=== PATIENT | female | born 1955 | race Caucasian/White ===

== ENCOUNTER → 2020-01-14 13:00 | Oncology outpatient (ONC) | payer MEDICARE, OTHER, SELFPAY ==
[2019-04-30 14:35] VITALS: BP 117/74; PULSE 99; RESP 18; TEMP 36.4; O2SAT 97
--- NOTE | 2019-04-30 14:56 | ONC.MSW ---
Description: New Pt Intro Activity: Met with pt and her to introduce myself as the ONC SERVICE DELIVERY ANALYST/ROXY, offer services card, and assess immediate needs. Pt is here to establish with Dr. Fernandez for continued chemotherapy treatment, locally. She has an Oncologist that she has been working with down at [facility], and would like for that doctor to continue to be the primary care provider for her cancer treatment. Pt's was recently diagnosed with prostate cancer, and recently established his own care at [facility]. This is a recurrence in the setting of metastatic breast cancer. Pt has had multiple treatments, initially had a left breast lumpectomy, which is where she has recurred. SERVICE DELIVERY ANALYST explained the available resources and support available to her through the [facility], including the availability of the Women's Cancer Support Group. Pt shared that they have 2-adult daughters living in the [place] area, which is an option for her in terms of lodging, should his plan to drive back and forth from [place] every day for 8-weeks for radiation become too burdensome for him. Pt doesn't have any further questions or concerns at this time. Plan: F/u with patient when she returns to clinic with an ongoing treatment plan of care.
--- NOTE | 2019-04-30 15:11 | ONC.CONS ---
History of Present Illness - Data of Consult Primary Care Provider: Rachael Erickson MD - Consult Narrative Narrative: Diagnosis: Metastatic breast cancer Previous treatment: 1. Lumpectomy and axillary node biopsy on the left breast for a T2 N1, ER/OH positive, HER2 negative tumor in September 2006. She had 1 of 9 lymph nodes positive. Her primary tumor was 2.4 cm in size 2. 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 Adjuvant radiation finishing in March 2007 4. Tamoxifen. 5. Chest wall and bone recurrence detected in January 2011. She was treated with radiation 6. Xeloda and Xgeva 7. She had additional hormone therapy with letrozole, then anastrozole and then fulvestrant beginning in 2016 and then tamoxifen 8. Letrozole and palbociclib 9. Xeloda again in November 2017 for about a year. 10. Exemestane and Afinitor from November 2018 through February 2019 11. Progression in the breast and chest wall confirmed by biopsy. She has started on navelbine on days 1 and 8 of a 21 day cycle. She has had 1 cycle thus far History of present illness: The patient is a 64-year-old woman who is referred for ongoing local treatment for her breast cancer. She has had a long history of breast cancer that is been treated in [place] by Dr. Judy Erickson. Her has recently been diagnosed with prostate cancer and will be undergoing radiation. Because of that, it is more convenient for her to get her treated here. She has been extensively pretreated as outlined above. She has recently started on intravenous chemotherapy. She tolerated the 1st cycle with expected toxicity. She did have some fatigue. She had some mild nausea but no vomiting. She did have constipation. She also had some musculoskeletal aches and pains that lasted for about a week. He was bad enough that she did need some oxycodone. No fevers or chills. She has not noted any shortness of breath or cough. She denies any other new aches or pains. Her past medical history is notable for depression and hyperlipidemia. She has otherwise been quite healthy. Her family history is notable for mother who had leukemia. Her brother had some sort of cancer although she is not sure about the details. Social history: She is . 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 She does not smoke. She does have some red wine with dinner. She had been active doing art but because of her depression has not felt like it lately. Her medications include Abilify Lipitor Wellbutrin denosumab every 3 months Cymbalta and ranitidine. She also takes a number of supplements. CC: Edin Fernandez MD Home Medications and Allergies Home Medications Medication Instructions Recorded Confirmed Type Tumeric 800 mg DAILY 04/30/19 04/30/19 History aripiprazole [Abilify] 2 mg DAILY 04/30/19 04/30/19 History atorvastatin 10 mg PO DAILY 04/30/19 04/30/19 History bupropion HCl [Wellbutrin XL] 300 mg DAILY 04/30/19 04/30/19 History duloxetine [Cymbalta] 30 mg PO DAILY 04/30/19 04/30/19 History gabapentin 100 mg PO DAILY 04/30/19 04/30/19 History ginkgo biloba 40 mg DAILY 04/30/19 04/30/19 History melatonin 5 mg DAILY 04/30/19 04/30/19 History oxycodone 5 mg PO Q4-6H PRN 04/30/19 04/30/19 History prochlorperazine maleate 10 mg PO BID PRN 04/30/19 04/30/19 History [Compazine] pyridoxine (vitamin B6) [Vitamin 100 mg PO DAILY 04/30/19 04/30/19 History B-6] ranitidine HCl 150 mg PO DAILY 04/30/19 04/30/19 History Review of Systems - Patient Self-Reported Symptoms SR Constitution: Fatigue/Malaise SR Gastrointestinal issues: Change in bowel pattern, Nausea, Diarrhea, Constipation, Abdominal pain, Heartburn SR Musculoskeletal issues: Joint pain or swelling, Bone pain SR Neuro issues: Numbness or tingling Constitutional: no weight loss Ears, nose, mouth, throat: no headaches Cardiovascular: no chest pain, no palpitations, no dyspnea on exertion Respiratory: no shortness of breath, no cough Gastrointestinal: change in appetite, abdominal pain, constipation Musculoskeletal: pain Integumentary: no rash Psychiatric: mood disturbance Exam Vital signs: Vital Signs Temp Pulse Resp BP Pulse Ox 04/30/19 14:35 97.6 F 99 H 18 117/74 97 Intake and Output 04/29/19 04/30/19 04/30/19 23:59 07:59 15:59 Other: Weight 78.8 kg Patient Weight 04/30/19 23:59 Weight 78.8 kg - Constitutional positive no acute distress, positive average body habitus - Routine HEENT Exam Head: Present: normocephalic, atraumatic Eye: Present: EOMI, PERRL. Absent: conjunctival icterus, scleral injection ENT: Present: mucous membranes moist, oropharynx clear - Routine Neck Exam Present: supple. Absent: lymphadenopathy, thyromegaly - Routine Respiratory Exam Present: Clear to auscultation bilaterally. Absent: rales, wheezes - Routine Cardiovascular Exam Present: RRR, S1, S2. Absent: murmur - Routine Abdominal Exam Present: soft, normoactive bowel sounds. Absent: tenderness, organomegaly, mass - Routine Extremities Exam Absent: cyanosis, clubbing, edema - Routine Back/Spine Exam Back/Spine: Absent: paraspinal tenderness, vertebral tenderness - Routine Skin Exam Present: intact. Absent: petechiae, rash - Routine Neurological Exam Present: alert, oriented X3 - Routine Psychiatric Exam Present: normal affect, normal thought process Assessment and Plan (1) Breast cancer Current visit: Yes Status: Acute 64-year-old woman with metastatic breast cancer. She has been heavily pretreated but does just started IV chemotherapy with vinorelbine. She tolerated the 1st cycle with expected toxicities. It is not clear whether she is responding or not. She will get her 2nd cycle in [place] and begin treatment here just before the 23 of May. We will plan on seeing her about every 3 weeks. I would anticipate that she would have CT scan after 2-3 months of treatment depending on her tumor marker response.
[2019-05-22 10:53] LABS: Hematocrit 38.6 % (36-46); Hemoglobin 12.9 g/dL (12.0-16.0); Mean Corpuscular HGB Conc 33.5 % (30-36); Mean Corpuscular Hemoglobin 29.8 PG (26-34); Mean Corpuscular Volume 89.1 fL (80-100); Platelet Count 248 X10^3/uL (150-400); Red Blood Cell Count 4.33 X10^6/uL (4.0-5.2); Red Cell Distribution Width 18.2 % (11.6-14.8); White Blood Cell Count 10.3 X10^3/uL (4.5-11.0)
[2019-05-22 10:56] VITALS: BP 146/75; PULSE 90; RESP 16; TEMP 36.5; O2SAT 97
--- NOTE | 2019-05-22 10:59 | P.PNONC_ITS ---
PN -Subjective Interval history: Diagnosis: Metastatic breast cancer Previous treatment: 1. Lumpectomy and axillary node biopsy on the left breast for a T2 N1, ER/SC positive, HER2 negative tumor in September 2006. She had 1 of 9 lymph nodes positive. Her primary tumor was 2.4 cm in size 2. 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 Adjuvant radiation finishing in March 2007 4. Tamoxifen. 5. Chest wall and bone recurrence detected in January 2011. She was treated with radiation 6. Xeloda and Xgeva 7. She had additional hormone therapy with letrozole, then anastrozole and then fulvestrant beginning in 2016 and then tamoxifen 8. Letrozole and palbociclib 9. Xeloda again in November 2017 for about a year. 10. Exemestane and Afinitor from November 2018 through February 2019 11. Progression in the breast and chest wall confirmed by biopsy. She has started on navelbine on days 1 and 8 of a 21 day cycle. She has had 2 cycles thus far Interval history: The patient is a 64-year-old woman who returns today for follow-up. She has a history of metastatic breast cancer with primarily bony involvement. She has been treated in [place] but is transitioning to [place] now because of convenience. She is due to start her 3rd cycle of Navelbine today. She has tolerated her previous cycle with the expected toxicities. She has had some fatigue and nausea but no vomiting. She notes some achiness in her joints for about 3 or 4 days after the infusions. She has had some constipation. No skin rash. No fevers or chills. She did have a Neulasta shot with her 2nd cycle because of cytopenias. She has not noticed any shortness of breath or cough. No adenopathy. No other changes in her health. - Patient Self-Reported Symptoms SR Constitution: Fatigue/Malaise SR Gastrointestinal issues: Change in bowel pattern, Nausea, Diarrhea, Constipation, Abdominal pain, Heartburn SR Musculoskeletal issues: Joint pain or swelling, Bone pain SR Neuro issues: Numbness or tingling Home Medications and Allergies Home Medications Medication Instructions Recorded Confirmed Type Tumeric 800 mg DAILY 04/30/19 05/22/19 History aripiprazole [Abilify] 2 mg DAILY 04/30/19 05/22/19 History atorvastatin 10 mg PO DAILY 04/30/19 05/22/19 History bupropion HCl [Wellbutrin XL] 300 mg DAILY 04/30/19 05/22/19 History duloxetine [Cymbalta] 30 mg PO DAILY 04/30/19 05/22/19 History gabapentin 100 mg PO DAILY 04/30/19 05/22/19 History ginkgo biloba 40 mg DAILY 04/30/19 05/22/19 History melatonin 5 mg DAILY 04/30/19 05/22/19 History oxycodone 5 mg PO Q4-6H PRN 04/30/19 05/22/19 History prochlorperazine maleate 10 mg PO BID PRN 04/30/19 05/22/19 History [Compazine] pyridoxine (vitamin B6) [Vitamin 100 mg PO DAILY 04/30/19 05/22/19 History B-6] ranitidine HCl 150 mg PO DAILY 04/30/19 05/22/19 History Exam Vital signs: Intake and Output 05/21/19 05/22/19 05/22/19 23:59 07:59 15:59 Other: Weight 78.8 kg Patient Weight 05/22/19 23:59 Weight 78.8 kg - Constitutional positive no acute distress, positive average body habitus - Routine HEENT Exam Head: Present: normocephalic, atraumatic Eye: Present: EOMI, PERRL. Absent: conjunctival icterus, scleral injection ENT: Present: mucous membranes moist, oropharynx clear - Routine Neck Exam Present: supple. Absent: lymphadenopathy, thyromegaly - Routine Respiratory Exam Present: Clear to auscultation bilaterally. Absent: rales, wheezes - Routine Cardiovascular Exam Present: RRR, S1, S2. Absent: murmur - Routine Abdominal Exam Present: soft, normoactive bowel sounds. Absent: tenderness, organomegaly, mass - Routine Extremities Exam Absent: cyanosis, clubbing, edema - Routine Back/Spine Exam Back/Spine: Absent: vertebral tenderness - Routine Skin Exam Present: intact. Absent: petechiae, rash - Routine Neurological Exam Present: alert, oriented X3 - Routine Psychiatric Exam Present: normal affect, normal thought process Assessment and Plan (1) Breast cancer Current visit: Yes Status: Acute 64-year-old woman with metastatic breast cancer. She has been heavily pretreated but does just started IV chemotherapy with vinorelbine. She tolerated 2 cycles with expected toxicities. It is not clear whether she is responding or not. She will start her 3rd cycle today. She will return to clinic in about 3 weeks for follow-up.
[2019-05-22 11:03] LABS: Alanine Aminotransferase 55 IU/L (9-52); Albumin 4.2 g/dL (3.5-5.0); Albumin Globulin Ratio 1.4 (1.0-2.8); Alkaline Phosphatase 160 U/L (38-126); Aspartate Aminotransferase 45 IU/L (14-36); BUN Creatinine Ratio 22.5 (6-22); Bilirubin Total 0.5 mg/dL (0.2-1.3); Blood Urea Nitrogen 18 mg/dL (7-17); Calcium 9.1 mg/dL (8.4-10.2); Carbon Dioxide 27 mmol/L (22-32); Chloride 104 mmol/L (98-107); Estimated Glomerular Filt Rate > 60.0 mL/min (>60); Glucose 100 mg/dL (80-110); HEMOLYSIS 27 (0-50); Potassium 4.3 mmol/L (3.4-5.1); Sodium 140 mmol/L (137-145); Total Protein 7.2 g/dL (6.3-8.2)
[2019-05-22 11:14] LABS: Add Manual Diff / Slide Review YES
[2019-05-22 11:29] LABS: Anisocytosis 2+; Neutrophils Absolute Manual 7725 /uL (3000-5900); Nucleated Red Blood Cells 1 #/Diff; Poikilocytosis 1+; Total Cells Counted 100
[2019-05-22] MEDS: ONDANSETRON 8 MG in SODIUM CHLORIDE 0.9% 50 ML 216 ML IV (11:45)
[2019-05-22] MEDS: DEXAMETHASONE 10 MG/ML VIAL 8 MG IV (11:45)
[2019-05-22] MEDS: SODIUM CHLORIDE 0.9% 100 ML 21 ML IV (11:48)
[2019-05-22] MEDS: VINORELBINE IV (12:29)
[2019-05-22] MEDS: SODIUM CHLORIDE 0.9% IV (12:29)
[2019-05-24 14:44] LABS: CA 15-3 77 U/mL (< 32)
[2019-05-29 11:28] LABS: Add Manual Diff / Slide Review NO; Basophils Absolute Auto 100 /uL (0-100); Basophils Percent Auto 2.3 % (0-2); Eosinophils Absolute Auto 100 /uL (0-450); Eosinophils Percent Auto 2.3 % (2-4); Hematocrit 34.8 % (36-46); Hemoglobin 12.1 g/dL (12.0-16.0); Lymphocytes Absolute Auto 1100 /uL (1100-4500); Lymphocytes Percent Auto 24.8 % (25-40); Mean Corpuscular HGB Conc 34.7 % (30-36); Mean Corpuscular Hemoglobin 30.8 PG (26-34); Mean Corpuscular Volume 88.5 fL (80-100); Monocytes Absolute Auto 200 /uL (0-900); Monocytes Percent Auto 4.7 % (3-14); Neutrophils Absolute Auto 3000 /uL (1500-7000); Neutrophils Percent Auto 65.9 % (50-75); Platelet Count 363 X10^3/uL (150-400); Red Blood Cell Count 3.93 X10^6/uL (4.0-5.2); Red Cell Distribution Width 17.9 % (11.6-14.8); White Blood Cell Count 4.5 X10^3/uL (4.5-11.0)
[2019-05-29 11:44] LABS: Alanine Aminotransferase 49 IU/L (9-52); Albumin 4.1 g/dL (3.5-5.0); Albumin Globulin Ratio 1.5 (1.0-2.8); Alkaline Phosphatase 129 U/L (38-126); Aspartate Aminotransferase 34 IU/L (14-36); BUN Creatinine Ratio 22.9 (6-22); Bilirubin Total 0.5 mg/dL (0.2-1.3); Blood Urea Nitrogen 16 mg/dL (7-17); Calcium 9.2 mg/dL (8.4-10.2); Carbon Dioxide 27 mmol/L (22-32); Chloride 105 mmol/L (98-107); Estimated Glomerular Filt Rate > 60.0 mL/min (>60); Globulin 2.7 g/dL (1.7-4.1); Glucose 137 mg/dL (80-110); HEMOLYSIS < 15 (0-50); Sodium 140 mmol/L (137-145); Total Protein 6.8 g/dL (6.3-8.2)
[2019-05-29] MEDS: DEXAMETHASONE 10 MG/ML VIAL 8 MG IV (12:10)
[2019-05-29] MEDS: SODIUM CHLORIDE 0.9% 100 ML 21 ML IV (12:11)
[2019-05-29] MEDS: ONDANSETRON 8 MG in SODIUM CHLORIDE 0.9% 50 ML 216 ML IV (12:18)
[2019-05-29 12:42] VITALS: BP 131/74; PULSE 88; RESP 16; TEMP 36.5; O2SAT 96
[2019-05-29] MEDS: VINORELBINE IV (13:00)
[2019-05-29] MEDS: SODIUM CHLORIDE 0.9% IV (13:00)
[2019-05-29] MEDS: PEGFILGRASTIM 6 MG/0.6 ML KIT SUBCUT (14:06)
[2019-06-12 10:19] LABS: Add Manual Diff / Slide Review NO; Basophils Absolute Auto 100 /uL (0-100); Basophils Percent Auto 1.2 % (0-2); Eosinophils Absolute Auto 200 /uL (0-450); Eosinophils Percent Auto 2.4 % (2-4); Hemoglobin 12.4 g/dL (12.0-16.0); Lymphocytes Absolute Auto 1400 /uL (1100-4500); Lymphocytes Percent Auto 17.7 % (25-40); Mean Corpuscular HGB Conc 34.6 % (30-36); Mean Corpuscular Hemoglobin 31.1 PG (26-34); Mean Corpuscular Volume 89.8 fL (80-100); Monocytes Absolute Auto 600 /uL (0-900); Monocytes Percent Auto 7.2 % (3-14); Neutrophils Absolute Auto 5700 /uL (1500-7000); Neutrophils Percent Auto 71.5 % (50-75); Platelet Count 227 X10^3/uL (150-400); Red Blood Cell Count 4.01 X10^6/uL (4.0-5.2); Red Cell Distribution Width 19.1 % (11.6-14.8)
[2019-06-12 10:38] LABS: Alanine Aminotransferase 43 IU/L (9-52); Albumin 4.4 g/dL (3.5-5.0); Albumin Globulin Ratio 1.5 (1.0-2.8); Alkaline Phosphatase 151 U/L (38-126); Aspartate Aminotransferase 34 IU/L (14-36); BUN Creatinine Ratio 24.3 (6-22); Bilirubin Total 0.5 mg/dL (0.2-1.3); Blood Urea Nitrogen 17 mg/dL (7-17); Calcium 9.5 mg/dL (8.4-10.2); Carbon Dioxide 27 mmol/L (22-32); Chloride 102 mmol/L (98-107); Estimated Glomerular Filt Rate > 60.0 mL/min (>60); Globulin 2.9 g/dL (1.7-4.1); Glucose 102 mg/dL (80-110); HEMOLYSIS < 15 (0-50); Potassium 4.2 mmol/L (3.4-5.1); Sodium 139 mmol/L (137-145); Total Protein 7.3 g/dL (6.3-8.2)
[2019-06-12 10:50] VITALS: BP 148/77; PULSE 87; RESP 16; TEMP 36.8; O2SAT 99
--- NOTE | 2019-06-12 11:07 | P.PNONC_ITS ---
PN -Subjective Interval history: Diagnosis: Metastatic breast cancer Previous treatment: 1. Lumpectomy and axillary node biopsy on the left breast for a T2 N1, ER/MO positive, HER2 negative tumor in September 2006. She had 1 of 9 lymph nodes positive. Her primary tumor was 2.4 cm in size 2. 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 Adjuvant radiation finishing in March 2007 4. Tamoxifen. 5. Chest wall and bone recurrence detected in January 2011. She was treated with radiation 6. Xeloda and Xgeva 7. She had additional hormone therapy with letrozole, then anastrozole and then fulvestrant beginning in 2016 and then tamoxifen 8. Letrozole and palbociclib 9. Xeloda again in November 2017 for about a year. 10. Exemestane and Afinitor from November 2018 through February 2019 11. Progression in the breast and chest wall confirmed by biopsy. She has started on navelbine on days 1 and 8 of a 21 day cycle. She has had 3 cycles thus far Interval history: The patient is a 64-year-old woman who returns today for follow-up. She has a history of metastatic breast cancer with primarily bony involvement. She has completed her 3rd cycle of Navelbine and is due for her 4th today. She has been tolerating it generally fairly well. She has had some fatigue and nausea but no vomiting. She has also noted some constipation. She has had some joint an bony pain following her Neulasta injections but denies any other new aches or pains. No fevers chills or sweats. No shortness of breath or cough. She has not noted any adenopathy. She otherwise feels well and denies any other changes in her health. She tells me that she is scheduled for a CT scan in follow-up in [facility] in June. - Patient Self-Reported Symptoms SR Constitution: Fatigue/Malaise SR ears, nose, mouth, throat issues: Changes in taste SR respiratory issues: Shortness of breath SR Skin issues: Hair loss or scalp prob, Nail changes SR Gastrointestinal issues: Heartburn SR Musculoskeletal issues: Muscle pain or cramps, Bone pain SR Neuro issues: Numbness or tingling Home Medications and Allergies Home Medications Medication Instructions Recorded Confirmed Type Tumeric 800 mg DAILY 04/30/19 06/12/19 History aripiprazole [Abilify] 2 mg DAILY 04/30/19 06/12/19 History atorvastatin 10 mg PO DAILY 04/30/19 06/12/19 History bupropion HCl [Wellbutrin XL] 300 mg DAILY 04/30/19 06/12/19 History duloxetine [Cymbalta] 30 mg PO DAILY 04/30/19 06/12/19 History gabapentin 100 mg PO DAILY 04/30/19 06/12/19 History ginkgo biloba 40 mg DAILY 04/30/19 06/12/19 History melatonin 5 mg DAILY 04/30/19 06/12/19 History oxycodone 5 mg PO Q4-6H PRN 04/30/19 06/12/19 History prochlorperazine maleate 10 mg PO BID PRN 04/30/19 06/12/19 History [Compazine] pyridoxine (vitamin B6) [Vitamin 100 mg PO DAILY 04/30/19 06/12/19 History B-6] ranitidine HCl 150 mg PO DAILY 04/30/19 06/12/19 History Allergies Allergy/AdvReac Type Severity Reaction Status Date / Time No Known Drug Allergies Allergy Verified 05/22/19 12:19 Exam Vital signs: Vital Signs Temp Pulse Resp BP Pulse Ox 06/12/19 10:50 98.2 F 87 16 148/77 H 99 Intake and Output 06/11/19 06/12/19 06/12/19 23:59 07:59 15:59 Other: Weight 77.2 kg Patient Weight 06/12/19 23:59 Weight 77.2 kg - Constitutional positive no acute distress, positive average body habitus - Routine HEENT Exam Head: Present: normocephalic, atraumatic Eye: Present: EOMI, PERRL. Absent: conjunctival icterus, scleral injection ENT: Present: mucous membranes moist, oropharynx clear - Routine Neck Exam Present: supple. Absent: lymphadenopathy, thyromegaly - Routine Respiratory Exam Present: Clear to auscultation bilaterally. Absent: rales, wheezes - Routine Cardiovascular Exam Present: RRR, S1, S2. Absent: murmur - Routine Abdominal Exam Present: soft, normoactive bowel sounds. Absent: organomegaly, mass - Routine Extremities Exam Absent: cyanosis, clubbing, edema - Routine Back/Spine Exam Back/Spine: Absent: vertebral tenderness - Routine Skin Exam Present: intact. Absent: petechiae, rash - Routine Neurological Exam Present: alert, oriented X3 - Routine Psychiatric Exam Present: normal affect, normal thought process Results - Labs Laboratory Last Values WBC 8.0 X10^3/uL (4.5-11.0) 06/12/19 10:05 RBC 4.01 X10^6/uL (4.0-5.2) 06/12/19 10:05 Hgb 12.4 g/dL (12.0-16.0) 06/12/19 10:05 Hct 36.0 % (36-46) 06/12/19 10:05 MCV 89.8 fL (80-100) 06/12/19 10:05 MCH 31.1 PG (26-34) 06/12/19 10:05 MCHC 34.6 % (30-36) 06/12/19 10:05 RDW 19.1 % (11.6-14.8) H 06/12/19 10:05 Plt Count 227 X10^3/uL (150-400) 06/12/19 10:05 Neut % (Auto) 71.5 % (50-75) 06/12/19 10:05 Lymph % (Auto) 17.7 % (25-40) L 06/12/19 10:05 Power % (Auto) 7.2 % (3-14) 06/12/19 10:05 Eos % (Auto) 2.4 % (2-4) 06/12/19 10:05 Baso % (Auto) 1.2 % (0-2) 06/12/19 10:05 Neut # (Auto) 5700 /uL (5935-5171) 06/12/19 10:05 Lymph # (Auto) 1400 /uL (4026-1279) 06/12/19 10:05 Power # (Auto) 600 /uL (0-900) 06/12/19 10:05 Eos # (Auto) 200 /uL (0-450) 06/12/19 10:05 Baso # (Auto) 100 /uL (0-100) 06/12/19 10:05 Total Counted 100 05/22/19 10:30 Seg Neutrophils % 52.0 % (38-70) 05/22/19 10:30 Band Neutrophils % 23.0 % (3-7) H 05/22/19 10:30 Lymphocytes % (Manual) 16.0 % (25-45) L 05/22/19 10:30 Monocytes % (Manual) 6.0 % (2-11) 05/22/19 10:30 Eosinophils % (Manual) 2.0 % (2-4) 05/22/19 10:30 Basophils % (Manual) 1.0 % (0-1) 05/22/19 10:30 Neutrophils # (Manual) 7725 /uL (0832-4801) H 05/22/19 10:30 Nucleated RBCs 1 #/Diff (-0) H 05/22/19 10:30 Differential Comment 05/22/19 10:30 RBC Morphology Not Reportable 05/22/19 10:30 Poikilocytosis 1+ H 05/22/19 10:30 Anisocytosis 2+ H 05/22/19 10:30 Sodium 139 mmol/L (137-145) 06/12/19 10:05 Potassium 4.2 mmol/L (3.4-5.1) 06/12/19 10:05 Chloride 102 mmol/L (98-107) 06/12/19 10:05 Carbon Dioxide 27 mmol/L (22-32) 06/12/19 10:05 BUN 17 mg/dL (7-17) 06/12/19 10:05 Creatinine 0.70 mg/dL (0.52-1.04) 06/12/19 10:05 Estimated GFR > 60.0 mL/min (>60) 06/12/19 10:05 BUN/Creatinine Ratio 24.3 (6-22) H 06/12/19 10:05 Glucose 102 mg/dL (80-110) 06/12/19 10:05 Calcium 9.5 mg/dL (8.4-10.2) 06/12/19 10:05 Total Bilirubin 0.5 mg/dL (0.2-1.3) 06/12/19 10:05 AST 34 IU/L (14-36) 06/12/19 10:05 ALT 43 IU/L (9-52) 06/12/19 10:05 Alkaline Phosphatase 151 U/L (38-126) H 06/12/19 10:05 Total Protein 7.3 g/dL (6.3-8.2) 06/12/19 10:05 Albumin 4.4 g/dL (3.5-5.0) 06/12/19 10:05 Globulin 2.9 g/dL (1.7-4.1) 06/12/19 10:05 Albumin/Globulin Ratio 1.5 (1.0-2.8) 06/12/19 10:05 Carc[facility] Ag 202.0 ng/mL (0.1-3.0) H 05/22/19 10:30 Breast [facility] Ag 77 U/mL (< 32) H 05/22/19 10:30 Assessment and Plan (1) Breast cancer Current visit: Yes Status: Acute 64-year-old woman with metastatic breast cancer. She has been tolerating her current chemotherapy with the expected toxicities. We will proceed with her 4th cycle today. She will return to clinic in about 3 weeks for follow-up. She will be due for restaging evaluation in [place] in June.
[2019-06-12] MEDS: DEXAMETHASONE 10 MG/ML VIAL 8 MG IV (11:41)
[2019-06-12] MEDS: ONDANSETRON 8 MG in SODIUM CHLORIDE 0.9% 50 ML 216 ML IV (11:44)
[2019-06-12] MEDS: SODIUM CHLORIDE 0.9% 100 ML 21 ML IV (11:44)
[2019-06-12] MEDS: SODIUM CHLORIDE 0.9% IV (12:22)
[2019-06-12] MEDS: VINORELBINE IV (12:22)
[2019-06-14 16:24] LABS: CA 15-3 46 U/mL (< 32)
[2019-06-19 14:03] LABS: Add Manual Diff / Slide Review NO; Basophils Absolute Auto 100 /uL (0-100); Basophils Percent Auto 1.2 % (0-2); Eosinophils Absolute Auto 200 /uL (0-450); Eosinophils Percent Auto 3.1 % (2-4); Hematocrit 35.5 % (36-46); Hemoglobin 12.1 g/dL (12.0-16.0); Lymphocytes Absolute Auto 1200 /uL (1100-4500); Lymphocytes Percent Auto 21.3 % (25-40); Mean Corpuscular HGB Conc 34.1 % (30-36); Mean Corpuscular Hemoglobin 30.9 PG (26-34); Mean Corpuscular Volume 90.6 fL (80-100); Monocytes Absolute Auto 300 /uL (0-900); Monocytes Percent Auto 4.9 % (3-14); Neutrophils Absolute Auto 4000 /uL (1500-7000); Neutrophils Percent Auto 69.5 % (50-75); Platelet Count 363 X10^3/uL (150-400); Red Blood Cell Count 3.92 X10^6/uL (4.0-5.2); Red Cell Distribution Width 18.5 % (11.6-14.8); White Blood Cell Count 5.8 X10^3/uL (4.5-11.0)
[2019-06-19 14:11] VITALS: BP 123/69; PULSE 100; RESP 14; TEMP 36.8; O2SAT 97
[2019-06-19 14:12] LABS: Alanine Aminotransferase 44 IU/L (9-52); Albumin 4.3 g/dL (3.5-5.0); Albumin Globulin Ratio 1.4 (1.0-2.8); Alkaline Phosphatase 131 U/L (38-126); Aspartate Aminotransferase 41 IU/L (14-36); BUN Creatinine Ratio 24.3 (6-22); Bilirubin Total 0.5 mg/dL (0.2-1.3); Blood Urea Nitrogen 17 mg/dL (7-17); Calcium 9.2 mg/dL (8.4-10.2); Carbon Dioxide 27 mmol/L (22-32); Chloride 103 mmol/L (98-107); Estimated Glomerular Filt Rate > 60.0 mL/min (>60); Glucose 113 mg/dL (80-110); HEMOLYSIS 36 (0-50); Potassium 4.1 mmol/L (3.4-5.1); Sodium 140 mmol/L (137-145); Total Protein 7.3 g/dL (6.3-8.2)
[2019-06-19] MEDS: SODIUM CHLORIDE 0.9% 100 ML 21 ML IV (14:52)
[2019-06-19] MEDS: DEXAMETHASONE 10 MG/ML VIAL 8 MG IV (15:08)
[2019-06-19] MEDS: ONDANSETRON 8 MG in SODIUM CHLORIDE 0.9% 50 ML 216 ML IV (15:09)
[2019-06-19] MEDS: VINORELBINE IV (16:00)
[2019-06-19] MEDS: SODIUM CHLORIDE 0.9% IV (16:00)
[2019-06-19] MEDS: PEGFILGRASTIM 6 MG/0.6 ML KIT SUBCUT (16:27)
[2019-07-03 14:40] VITALS: BP 132/77; PULSE 88; RESP 18; TEMP 36.1; O2SAT 98
--- NOTE | 2019-07-03 15:07 | ONC.MSW ---
Description: Check-in/Resources Activity: Checked in with pt re: coping. Pt states that she is doing well, is continuing to be followed by her oncologist at [facility]. [employer] provided pt with a flyer for the upcoming women's cancer support group, encouraged her to attend. No further needs indicated at this time.
--- NOTE | 2019-07-03 15:09 | ONC.PN ---
PN -Subjective Interval history: Diagnosis: Metastatic breast cancer Previous treatment: 1. Lumpectomy and axillary node biopsy on the left breast for a T2 N1, ER/TN positive, HER2 negative tumor in September 2006. She had 1 of 9 lymph nodes positive. Her primary tumor was 2.4 cm in size 2. 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 Adjuvant radiation finishing in March 2007 4. Tamoxifen. 5. Chest wall and bone recurrence detected in January 2011. She was treated with radiation 6. Xeloda and Xgeva 7. She had additional hormone therapy with letrozole, then anastrozole and then fulvestrant beginning in 2016 and then tamoxifen 8. Letrozole and palbociclib 9. Xeloda again in November 2017 for about a year. 10. Exemestane and Afinitor from November 2018 through February 2019 11. Progression in the breast and chest wall confirmed by biopsy. She has started on navelbine on days 1 and 8 of a 21 day cycle. She has had 4 cycles thus far Interval history: The patient is a 64-year-old woman who returns today for follow-up. She has a history of metastatic breast cancer with primarily bony involvement. She has completed her 4th cycle of Navelbine and is due for her 5th today. She has been tolerating it generally fairly well. She has had some fatigue and nausea but no vomiting. Her appetite has been good. Her strength and energy level have been fair. She denies any new aches or pains. No fevers chills or sweats. She is not having any constipation. No skin rash or itching. She has not noted any adenopathy. No shortness of breath or cough. She was seen down in [place] last week. She had a CT scan and bone scan. There was no evidence of increased measurable disease. There was some increased intensity on her bone scan and some increased sclerosis in the bone on CT. It was not clear whether that represented progression or healing. She did meet with her oncologist there who recommended continuing on with her Navelbine. - Patient Self-Reported Symptoms SR Constitution: Fatigue/Malaise SR ears, nose, mouth, throat issues: Changes in taste SR respiratory issues: Shortness of breath SR Skin issues: Hair loss or scalp prob, Nail changes SR Gastrointestinal issues: Heartburn SR Musculoskeletal issues: Muscle pain or cramps, Bone pain SR Neuro issues: Numbness or tingling Home Medications and Allergies Home Medications Medication Instructions Recorded Confirmed Type Tumeric 800 mg DAILY 04/30/19 06/12/19 History aripiprazole [Abilify] 2 mg DAILY 04/30/19 06/12/19 History atorvastatin 10 mg PO DAILY 04/30/19 06/12/19 History bupropion HCl [Wellbutrin XL] 300 mg DAILY 04/30/19 06/12/19 History duloxetine [Cymbalta] 30 mg PO DAILY 04/30/19 06/12/19 History gabapentin 100 mg PO DAILY 04/30/19 06/12/19 History ginkgo biloba 40 mg DAILY 04/30/19 06/12/19 History melatonin 5 mg DAILY 04/30/19 06/12/19 History oxycodone 5 mg PO Q4-6H PRN 04/30/19 06/12/19 History prochlorperazine maleate 10 mg PO BID PRN 04/30/19 06/12/19 History [Compazine] pyridoxine (vitamin B6) [Vitamin 100 mg PO DAILY 04/30/19 06/12/19 History B-6] ranitidine HCl 150 mg PO DAILY 04/30/19 06/12/19 History Allergies Allergy/AdvReac Type Severity Reaction Status Date / Time No Known Drug Allergies Allergy Verified 05/22/19 12:19 Exam Vital signs: Vital Signs Temp Pulse Resp BP Pulse Ox 07/03/19 14:40 97 F L 88 18 132/77 98 Intake and Output 07/02/19 07/03/19 07/03/19 23:59 07:59 15:59 Other: Weight 77.2 kg 76.2 kg Patient Weight 07/03/19 23:59 Weight 76.2 kg - Constitutional positive no acute distress, positive average body habitus - Routine HEENT Exam Head: Present: normocephalic, atraumatic Eye: Present: EOMI, PERRL. Absent: conjunctival icterus, scleral injection ENT: Present: mucous membranes moist, oropharynx clear - Routine Neck Exam Present: supple. Absent: lymphadenopathy, thyromegaly - Routine Respiratory Exam Present: Clear to auscultation bilaterally. Absent: rales, wheezes - Routine Cardiovascular Exam Present: RRR, S1, S2. Absent: murmur - Routine Abdominal Exam Present: soft, normoactive bowel sounds. Absent: tenderness, organomegaly, mass - Routine Extremities Exam Absent: cyanosis, clubbing, edema - Routine Back/Spine Exam Back/Spine: Absent: vertebral tenderness - Routine Skin Exam Present: intact. Absent: petechiae, rash - Routine Neurological Exam Present: alert, oriented X3 - Routine Psychiatric Exam Present: normal affect, normal thought process Results - Labs Laboratory Last Values WBC 5.8 X10^3/uL (4.5-11.0) 06/19/19 13:50 RBC 3.92 X10^6/uL (4.0-5.2) L 06/19/19 13:50 Hgb 12.1 g/dL (12.0-16.0) 06/19/19 13:50 Hct 35.5 % (36-46) L 06/19/19 13:50 MCV 90.6 fL (80-100) 06/19/19 13:50 MCH 30.9 PG (26-34) 06/19/19 13:50 MCHC 34.1 % (30-36) 06/19/19 13:50 RDW 18.5 % (11.6-14.8) H 06/19/19 13:50 Plt Count 363 X10^3/uL (150-400) 06/19/19 13:50 Neut % (Auto) 69.5 % (50-75) 06/19/19 13:50 Lymph % (Auto) 21.3 % (25-40) L 06/19/19 13:50 [place] % (Auto) 4.9 % (3-14) 06/19/19 13:50 Eos % (Auto) 3.1 % (2-4) 06/19/19 13:50 Baso % (Auto) 1.2 % (0-2) 06/19/19 13:50 Neut # (Auto) 4000 /uL (8569-8545) 06/19/19 13:50 Lymph # (Auto) 1200 /uL (8717-0378) 06/19/19 13:50 [place] # (Auto) 300 /uL (0-900) 06/19/19 13:50 Eos # (Auto) 200 /uL (0-450) 06/19/19 13:50 Baso # (Auto) 100 /uL (0-100) 06/19/19 13:50 Total Counted 100 05/22/19 10:30 Seg Neutrophils % 52.0 % (38-70) 05/22/19 10:30 Band Neutrophils % 23.0 % (3-7) H 05/22/19 10:30 Lymphocytes % (Manual) 16.0 % (25-45) L 05/22/19 10:30 Monocytes % (Manual) 6.0 % (2-11) 05/22/19 10:30 Eosinophils % (Manual) 2.0 % (2-4) 05/22/19 10:30 Basophils % (Manual) 1.0 % (0-1) 05/22/19 10:30 Neutrophils # (Manual) 7725 /uL (3829-9514) H 05/22/19 10:30 Nucleated RBCs 1 #/Diff (-0) H 05/22/19 10:30 Differential Comment 05/22/19 10:30 RBC Morphology Not Reportable 05/22/19 10:30 Poikilocytosis 1+ H 05/22/19 10:30 Anisocytosis 2+ H 05/22/19 10:30 Sodium 140 mmol/L (137-145) 06/19/19 13:50 Potassium 4.1 mmol/L (3.4-5.1) 06/19/19 13:50 Chloride 103 mmol/L (98-107) 06/19/19 13:50 Carbon Dioxide 27 mmol/L (22-32) 06/19/19 13:50 BUN 17 mg/dL (7-17) 06/19/19 13:50 Creatinine 0.70 mg/dL (0.52-1.04) 06/19/19 13:50 Estimated GFR > 60.0 mL/min (>60) 06/19/19 13:50 BUN/Creatinine Ratio 24.3 (6-22) H 06/19/19 13:50 Glucose 113 mg/dL (80-110) H 06/19/19 13:50 Calcium 9.2 mg/dL (8.4-10.2) 06/19/19 13:50 Total Bilirubin 0.5 mg/dL (0.2-1.3) 06/19/19 13:50 AST 41 IU/L (14-36) H 06/19/19 13:50 ALT 44 IU/L (9-52) 06/19/19 13:50 Alkaline Phosphatase 131 U/L (38-126) H 06/19/19 13:50 Total Protein 7.3 g/dL (6.3-8.2) 06/19/19 13:50 Albumin 4.3 g/dL (3.5-5.0) 06/19/19 13:50 Globulin 3.0 g/dL (1.7-4.1) 06/19/19 13:50 Albumin/Globulin Ratio 1.4 (1.0-2.8) 06/19/19 13:50 [facility] 140.0 ng/mL (0.1-3.0) H 06/12/19 10:05 Breast [facility] Ag 46 U/mL (< 32) H 06/12/19 10:05 Assessment and Plan (1) Breast cancer Current visit: Yes Status: Acute 64-year-old woman with metastatic breast cancer. She has been tolerating her current chemotherapy with the expected toxicities. She appears to be clinical stable. She is perhaps having some response. Her tumor markers have improved. She will continue on with her current treatment regimen. She will return to clinic in about 3 weeks for follow-up. She will be due for another set of CT scans in about 3 months.
[2019-07-03 15:39] LABS: Add Manual Diff / Slide Review NO; Basophils Absolute Auto 100 /uL (0-100); Basophils Percent Auto 0.8 % (0-2); Eosinophils Absolute Auto 200 /uL (0-450); Eosinophils Percent Auto 1.7 % (2-4); Hematocrit 36.5 % (36-46); Hemoglobin 12.3 g/dL (12.0-16.0); Lymphocytes Absolute Auto 1300 /uL (1100-4500); Lymphocytes Percent Auto 14.5 % (25-40); Mean Corpuscular HGB Conc 33.5 % (30-36); Mean Corpuscular Hemoglobin 31.3 PG (26-34); Mean Corpuscular Volume 93.2 fL (80-100); Monocytes Absolute Auto 600 /uL (0-900); Monocytes Percent Auto 6.8 % (3-14); Neutrophils Absolute Auto 6900 /uL (1500-7000); Neutrophils Percent Auto 76.2 % (50-75); Platelet Count 252 X10^3/uL (150-400); Red Blood Cell Count 3.92 X10^6/uL (4.0-5.2); Red Cell Distribution Width 19.2 % (11.6-14.8); White Blood Cell Count 9.1 X10^3/uL (4.5-11.0)
[2019-07-03 15:53] LABS: Alanine Aminotransferase 36 IU/L (9-52); Albumin 4.2 g/dL (3.5-5.0); Albumin Globulin Ratio 1.5 (1.0-2.8); Alkaline Phosphatase 144 U/L (38-126); Aspartate Aminotransferase 28 IU/L (14-36); Bilirubin Total 0.4 mg/dL (0.2-1.3); Blood Urea Nitrogen 20 mg/dL (7-17); Calcium 9.1 mg/dL (8.4-10.2); Carbon Dioxide 26 mmol/L (22-32); Chloride 103 mmol/L (98-107); Estimated Glomerular Filt Rate > 60.0 mL/min (>60); Globulin 2.8 g/dL (1.7-4.1); Glucose 86 mg/dL (80-110); HEMOLYSIS < 15 (0-50); Potassium 4.1 mmol/L (3.4-5.1); Sodium 139 mmol/L (137-145)
[2019-07-03] MEDS: DEXAMETHASONE 10 MG/ML VIAL 8 MG IV (16:03)
[2019-07-03] MEDS: ONDANSETRON 8 MG in SODIUM CHLORIDE 0.9% 50 ML 216 ML IV (16:10)
[2019-07-03] MEDS: SODIUM CHLORIDE 0.9% 100 ML 21 ML IV (16:34)
[2019-07-03] MEDS: VINORELBINE IV (16:42)
[2019-07-03] MEDS: SODIUM CHLORIDE 0.9% IV (16:42)
[2019-07-10 13:26] LABS: Add Manual Diff / Slide Review NO; Basophils Absolute Auto 0 /uL (0-100); Basophils Percent Auto 0.6 % (0-2); Eosinophils Absolute Auto 200 /uL (0-450); Eosinophils Percent Auto 4.2 % (2-4); Hemoglobin 11.5 g/dL (12.0-16.0); Lymphocytes Absolute Auto 900 /uL (1100-4500); Lymphocytes Percent Auto 22.5 % (25-40); Mean Corpuscular HGB Conc 34.8 % (30-36); Mean Corpuscular Hemoglobin 31.8 PG (26-34); Mean Corpuscular Volume 91.6 fL (80-100); Monocytes Absolute Auto 200 /uL (0-900); Monocytes Percent Auto 5.8 % (3-14); Neutrophils Absolute Auto 2700 /uL (1500-7000); Neutrophils Percent Auto 66.9 % (50-75); Platelet Count 305 X10^3/uL (150-400)
[2019-07-10 13:39] LABS: Alanine Aminotransferase 41 IU/L (9-52); Albumin 4.1 g/dL (3.5-5.0); Albumin Globulin Ratio 1.5 (1.0-2.8); Alkaline Phosphatase 121 U/L (38-126); Aspartate Aminotransferase 39 IU/L (14-36); BUN Creatinine Ratio 27.1 (6-22); Bilirubin Total 0.5 mg/dL (0.2-1.3); Blood Urea Nitrogen 19 mg/dL (7-17); Calcium 9.4 mg/dL (8.4-10.2); Carbon Dioxide 28 mmol/L (22-32); Chloride 103 mmol/L (98-107); Estimated Glomerular Filt Rate > 60.0 mL/min (>60); Globulin 2.7 g/dL (1.7-4.1); Glucose 130 mg/dL (80-110); HEMOLYSIS < 15 (0-50); Potassium 3.7 mmol/L (3.4-5.1); Sodium 139 mmol/L (137-145); Total Protein 6.8 g/dL (6.3-8.2)
[2019-07-10 14:06] VITALS: BP 122/65; PULSE 95; RESP 16; TEMP 36.8; O2SAT 99
[2019-07-10] MEDS: DEXAMETHASONE 10 MG/ML VIAL 8 MG IV (14:11)
[2019-07-10] MEDS: ONDANSETRON 8 MG in SODIUM CHLORIDE 0.9% 50 ML 216 ML IV (14:24)
[2019-07-10] MEDS: SODIUM CHLORIDE 0.9% 100 ML 21 ML IV (14:24)
[2019-07-10] MEDS: VINORELBINE IV (15:21)
[2019-07-10] MEDS: SODIUM CHLORIDE 0.9% IV (15:21)
[2019-07-10] MEDS: PEGFILGRASTIM 6 MG/0.6 ML KIT SUBCUT (15:27)
[2019-07-24 11:04] VITALS: BP 145/85; PULSE 84; RESP 16; TEMP 36.8; O2SAT 96
[2019-07-24 11:08] LABS: Add Manual Diff / Slide Review NO; Basophils Absolute Auto 100 /uL (0-100); Basophils Percent Auto 1.7 % (0-2); Eosinophils Absolute Auto 100 /uL (0-450); Eosinophils Percent Auto 2.1 % (2-4); Hematocrit 34.5 % (36-46); Hemoglobin 11.8 g/dL (12.0-16.0); Lymphocytes Absolute Auto 1000 /uL (1100-4500); Lymphocytes Percent Auto 14.1 % (25-40); Mean Corpuscular HGB Conc 34.2 % (30-36); Mean Corpuscular Hemoglobin 31.9 PG (26-34); Mean Corpuscular Volume 93.3 fL (80-100); Monocytes Absolute Auto 500 /uL (0-900); Neutrophils Absolute Auto 5000 /uL (1500-7000); Neutrophils Percent Auto 74.1 % (50-75); Platelet Count 255 X10^3/uL (150-400); Red Cell Distribution Width 18.8 % (11.6-14.8); White Blood Cell Count 6.8 X10^3/uL (4.5-11.0)
[2019-07-24 11:14] LABS: Alanine Aminotransferase 35 IU/L (9-52); Albumin 4.1 g/dL (3.5-5.0); Albumin Globulin Ratio 1.5 (1.0-2.8); Alkaline Phosphatase 139 U/L (38-126); Aspartate Aminotransferase 29 IU/L (14-36); BUN Creatinine Ratio 24.3 (6-22); Bilirubin Total 0.5 mg/dL (0.2-1.3); Blood Urea Nitrogen 17 mg/dL (7-17); Calcium 9.1 mg/dL (8.4-10.2); Carbon Dioxide 26 mmol/L (22-32); Chloride 103 mmol/L (98-107); Estimated Glomerular Filt Rate > 60.0 mL/min (>60); Globulin 2.7 g/dL (1.7-4.1); Glucose 114 mg/dL (80-110); HEMOLYSIS < 15 (0-50); Potassium 4.1 mmol/L (3.4-5.1); Sodium 140 mmol/L (137-145); Total Protein 6.8 g/dL (6.3-8.2)
--- NOTE | 2019-07-24 11:32 | ONC.PN ---
PN -Subjective Interval history: Diagnosis: Metastatic breast cancer Previous treatment: 1. Lumpectomy and axillary node biopsy on the left breast for a T2 N1, ER/PA positive, HER2 negative tumor in September 2006. She had 1 of 9 lymph nodes positive. Her primary tumor was 2.4 cm in size 2. 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 Adjuvant radiation finishing in March 2007 4. Tamoxifen. 5. Chest wall and bone recurrence detected in January 2011. She was treated with radiation 6. Xeloda and Xgeva 7. She had additional hormone therapy with letrozole, then anastrozole and then fulvestrant beginning in 2016 and then tamoxifen 8. Letrozole and palbociclib 9. Xeloda again in November 2017 for about a year. 10. Exemestane and Afinitor from November 2018 through February 2019 11. Progression in the breast and chest wall confirmed by biopsy. She has started on navelbine on days 1 and 8 of a 21 day cycle. She has had 5 cycles thus far Interval history: The patient is a 64-year-old woman who returns today for follow-up. She has a history of metastatic breast cancer with primarily bony involvement. She has completed her 5th cycle of Navelbine and is due for her 6th today. She has been tolerating it generally fairly well. She has had some back pain that is been present for the last month or so. It happened after gardening. She had been taking some oxycodone for but now is only using some ibuprofen. It seems to be gradually improving and his present intermittently. She also has had some difficulty after her 2nd infusion with jittery or anxious. She feels like she needs to constantly move her extremities. It lasts for several days. It makes it quite difficult for her to sleep. She is not having any nausea or vomiting. No fevers chills or sweats. No shortness of breath or cough. Appetite has been good. She has had some itching and some constipation but they been relatively mild. She denies any other changes in her health. - Patient Self-Reported Symptoms SR Constitution: Fatigue/Malaise SR ears, nose, mouth, throat issues: Cough SR respiratory issues: Mucous SR Skin issues: Hair loss or scalp prob, Nail changes SR Gastrointestinal issues: Heartburn SR Musculoskeletal issues: Muscle pain or cramps, Bone pain SR Neuro issues: Tremors or shaking Home Medications and Allergies Home Medications Medication Instructions Recorded Confirmed Type Tumeric 800 mg DAILY 04/30/19 07/24/19 History aripiprazole [Abilify] 2 mg DAILY 04/30/19 07/24/19 History atorvastatin 10 mg PO DAILY 04/30/19 07/24/19 History bupropion HCl [Wellbutrin XL] 300 mg DAILY 04/30/19 07/24/19 History duloxetine [Cymbalta] 30 mg PO DAILY 04/30/19 07/24/19 History gabapentin 100 mg PO DAILY 04/30/19 07/24/19 History ginkgo biloba 40 mg DAILY 04/30/19 07/24/19 History melatonin 5 mg DAILY 04/30/19 07/24/19 History oxycodone 5 mg PO Q4-6H PRN 04/30/19 07/24/19 History prochlorperazine maleate 10 mg PO BID PRN 04/30/19 07/24/19 History [Compazine] pyridoxine (vitamin B6) [Vitamin 100 mg PO DAILY 04/30/19 07/24/19 History B-6] ranitidine HCl 150 mg PO DAILY 04/30/19 07/24/19 History Allergies Allergy/AdvReac Type Severity Reaction Status Date / Time No Known Drug Allergies Allergy Verified 05/22/19 12:19 Exam Vital signs: Vital Signs Temp Pulse Resp BP Pulse Ox 07/24/19 11:04 98.3 F 84 16 145/85 H 96 Intake and Output 07/23/19 07/24/19 07/24/19 23:59 07:59 15:59 Other: Weight 76.4 kg Patient Weight 07/24/19 23:59 Weight 76.4 kg - Constitutional positive no acute distress, positive average body habitus - Routine HEENT Exam Head: Present: normocephalic, atraumatic Eye: Present: EOMI, PERRL. Absent: conjunctival icterus, scleral injection ENT: Present: mucous membranes moist, oropharynx clear - Routine Neck Exam Present: supple. Absent: lymphadenopathy, thyromegaly - Routine Respiratory Exam Present: Clear to auscultation bilaterally. Absent: rales, wheezes - Routine Cardiovascular Exam Present: RRR, S1, S2. Absent: murmur - Routine Abdominal Exam Present: soft, normoactive bowel sounds. Absent: tenderness, organomegaly, mass - Routine Extremities Exam Absent: cyanosis, clubbing, edema - Routine Back/Spine Exam Back/Spine: Present: paraspinal tenderness. Absent: vertebral tenderness - Routine Skin Exam Present: intact. Absent: petechiae, rash - Routine Neurological Exam Present: alert, oriented X3 - Routine Psychiatric Exam Present: normal affect, normal thought process Results - Labs Laboratory Last Values WBC 6.8 X10^3/uL (4.5-11.0) 07/24/19 10:45 RBC 3.70 X10^6/uL (4.0-5.2) L 07/24/19 10:45 Hgb 11.8 g/dL (12.0-16.0) L 07/24/19 10:45 Hct 34.5 % (36-46) L 07/24/19 10:45 MCV 93.3 fL (80-100) 07/24/19 10:45 MCH 31.9 PG (26-34) 07/24/19 10:45 MCHC 34.2 % (30-36) 07/24/19 10:45 RDW 18.8 % (11.6-14.8) H 07/24/19 10:45 Plt Count 255 X10^3/uL (150-400) 07/24/19 10:45 Neut % (Auto) 74.1 % (50-75) 07/24/19 10:45 Lymph % (Auto) 14.1 % (25-40) L 07/24/19 10:45 [place] % (Auto) 8.0 % (3-14) 07/24/19 10:45 Eos % (Auto) 2.1 % (2-4) 07/24/19 10:45 Baso % (Auto) 1.7 % (0-2) 07/24/19 10:45 Neut # (Auto) 5000 /uL (0492-0644) 07/24/19 10:45 Lymph # (Auto) 1000 /uL (1862-8729) L 07/24/19 10:45 [place] # (Auto) 500 /uL (0-900) 07/24/19 10:45 Eos # (Auto) 100 /uL (0-450) 07/24/19 10:45 Baso # (Auto) 100 /uL (0-100) 07/24/19 10:45 Total Counted 100 05/22/19 10:30 Seg Neutrophils % 52.0 % (38-70) 05/22/19 10:30 Band Neutrophils % 23.0 % (3-7) H 05/22/19 10:30 Lymphocytes % (Manual) 16.0 % (25-45) L 05/22/19 10:30 Monocytes % (Manual) 6.0 % (2-11) 05/22/19 10:30 Eosinophils % (Manual) 2.0 % (2-4) 05/22/19 10:30 Basophils % (Manual) 1.0 % (0-1) 05/22/19 10:30 Neutrophils # (Manual) 7725 /uL (0936-5945) H 05/22/19 10:30 Nucleated RBCs 1 #/Diff (-0) H 05/22/19 10:30 Differential Comment 05/22/19 10:30 RBC Morphology Not Reportable 05/22/19 10:30 Poikilocytosis 1+ H 05/22/19 10:30 Anisocytosis 2+ H 05/22/19 10:30 Sodium 140 mmol/L (137-145) 07/24/19 10:45 Potassium 4.1 mmol/L (3.4-5.1) 07/24/19 10:45 Chloride 103 mmol/L (98-107) 07/24/19 10:45 Carbon Dioxide 26 mmol/L (22-32) 07/24/19 10:45 BUN 17 mg/dL (7-17) 07/24/19 10:45 Creatinine 0.70 mg/dL (0.52-1.04) 07/24/19 10:45 Estimated GFR > 60.0 mL/min (>60) 07/24/19 10:45 BUN/Creatinine Ratio 24.3 (6-22) H 07/24/19 10:45 Glucose 114 mg/dL (80-110) H 07/24/19 10:45 Calcium 9.1 mg/dL (8.4-10.2) 07/24/19 10:45 Total Bilirubin 0.5 mg/dL (0.2-1.3) 07/24/19 10:45 AST 29 IU/L (14-36) 07/24/19 10:45 ALT 35 IU/L (9-52) 07/24/19 10:45 Alkaline Phosphatase 139 U/L (38-126) H 07/24/19 10:45 Total Protein 6.8 g/dL (6.3-8.2) 07/24/19 10:45 Albumin 4.1 g/dL (3.5-5.0) 07/24/19 10:45 Globulin 2.7 g/dL (1.7-4.1) 07/24/19 10:45 Albumin/Globulin Ratio 1.5 (1.0-2.8) 07/24/19 10:45 [facility] Ag 94.0 ng/mL (0.1-3.0) H 07/03/19 15:20 Breast [facility] Ag 46 U/mL (< 32) H 06/12/19 10:05 Assessment and Plan (1) Breast cancer Current visit: Yes Status: Acute 64-year-old woman with metastatic breast cancer. She has been tolerating her current chemotherapy with the expected toxicities. Her jittery feeling may be related to his steroids. Will try an omit them from this cycle to see if her symptoms improve. I think that her back pain is probably musculoskeletal not related to her cancers that seems to be improving. She will continue with her current chemotherapy and return to clinic in about 3 weeks for follow-up.
[2019-07-24 11:45] LABS: Carcinoembryonic Antigen 63.8 ng/mL (0.1-3.0)
[2019-07-24] MEDS: VINORELBINE IV (14:00)
[2019-07-24] MEDS: SODIUM CHLORIDE 0.9% IV (14:00)
[2019-07-31 13:15] LABS: Add Manual Diff / Slide Review NO; Basophils Absolute Auto 0 /uL (0-100); Basophils Percent Auto 0.9 % (0-2); Eosinophils Absolute Auto 200 /uL (0-450); Eosinophils Percent Auto 4.1 % (2-4); Hemoglobin 11.3 g/dL (12.0-16.0); Lymphocytes Absolute Auto 800 /uL (1100-4500); Mean Corpuscular HGB Conc 34.3 % (30-36); Mean Corpuscular Hemoglobin 32.1 PG (26-34); Mean Corpuscular Volume 93.6 fL (80-100); Monocytes Absolute Auto 300 /uL (0-900); Monocytes Percent Auto 6.3 % (3-14); Neutrophils Absolute Auto 2700 /uL (1500-7000); Neutrophils Percent Auto 68.7 % (50-75); Platelet Count 331 X10^3/uL (150-400); Red Blood Cell Count 3.53 X10^6/uL (4.0-5.2); Red Cell Distribution Width 17.4 % (11.6-14.8)
[2019-07-31 13:30] LABS: Alanine Aminotransferase 35 IU/L (9-52); Albumin Globulin Ratio 1.4 (1.0-2.8); Alkaline Phosphatase 127 U/L (38-126); Aspartate Aminotransferase 38 IU/L (14-36); BUN Creatinine Ratio 22.5 (6-22); Bilirubin Total 0.5 mg/dL (0.2-1.3); Blood Urea Nitrogen 18 mg/dL (7-17); Calcium 9.4 mg/dL (8.4-10.2); Carbon Dioxide 27 mmol/L (22-32); Chloride 102 mmol/L (98-107); Estimated Glomerular Filt Rate > 60.0 mL/min (>60); Globulin 2.8 g/dL (1.7-4.1); Glucose 119 mg/dL (80-110); HEMOLYSIS < 15 (0-50); Sodium 139 mmol/L (137-145); Total Protein 6.8 g/dL (6.3-8.2)
[2019-07-31 13:58] VITALS: BP 139/71; PULSE 96; RESP 18; TEMP 36.8; O2SAT 97
[2019-07-31] MEDS: SODIUM CHLORIDE 0.9% 100 ML 21 ML IV (14:46)
[2019-07-31] MEDS: VINORELBINE IV (15:10)
[2019-07-31] MEDS: SODIUM CHLORIDE 0.9% IV (15:10)
[2019-07-31] MEDS: PEGFILGRASTIM 6 MG/0.6 ML KIT SUBCUT (15:27)
[2019-08-14 10:02] LABS: Add Manual Diff / Slide Review NO; Basophils Absolute Auto 100 /uL (0-100); Eosinophils Absolute Auto 200 /uL (0-450); Eosinophils Percent Auto 2.5 % (2-4); Hematocrit 36.8 % (36-46); Hemoglobin 12.4 g/dL (12.0-16.0); Lymphocytes Absolute Auto 1200 /uL (1100-4500); Lymphocytes Percent Auto 14.5 % (25-40); Mean Corpuscular HGB Conc 33.8 % (30-36); Mean Corpuscular Hemoglobin 31.8 PG (26-34); Mean Corpuscular Volume 94.2 fL (80-100); Monocytes Absolute Auto 700 /uL (0-900); Monocytes Percent Auto 8.5 % (3-14); Neutrophils Absolute Auto 6200 /uL (1500-7000); Neutrophils Percent Auto 73.5 % (50-75); Platelet Count 283 X10^3/uL (150-400); Red Blood Cell Count 3.91 X10^6/uL (4.0-5.2); White Blood Cell Count 8.5 X10^3/uL (4.5-11.0)
[2019-08-14 10:07] VITALS: BP 136/77; PULSE 88; RESP 18; TEMP 36.2; O2SAT 98
[2019-08-14 10:13] LABS: Alanine Aminotransferase 35 IU/L (9-52); Albumin 4.4 g/dL (3.5-5.0); Albumin Globulin Ratio 1.6 (1.0-2.8); Alkaline Phosphatase 134 U/L (38-126); Aspartate Aminotransferase 35 IU/L (14-36); Bilirubin Total 0.4 mg/dL (0.2-1.3); Blood Urea Nitrogen 16 mg/dL (7-17); Calcium 9.4 mg/dL (8.4-10.2); Carbon Dioxide 28 mmol/L (22-32); Chloride 101 mmol/L (98-107); Estimated Glomerular Filt Rate > 60.0 mL/min (>60); Globulin 2.8 g/dL (1.7-4.1); Glucose 96 mg/dL (80-110); HEMOLYSIS < 15 (0-50); Potassium 4.2 mmol/L (3.4-5.1); Sodium 140 mmol/L (137-145); Total Protein 7.2 g/dL (6.3-8.2)
--- NOTE | 2019-08-14 10:20 | ONC.PN ---
PN -Subjective Interval history: Diagnosis: Metastatic breast cancer Previous treatment: 1. Lumpectomy and axillary node biopsy on the left breast for a T2 N1, ER/DE positive, HER2 negative tumor in September 2006. She had 1 of 9 lymph nodes positive. Her primary tumor was 2.4 cm in size 2. 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 Adjuvant radiation finishing in March 2007 4. Tamoxifen. 5. Chest wall and bone recurrence detected in January 2011. She was treated with radiation 6. Xeloda and Xgeva 7. She had additional hormone therapy with letrozole, then anastrozole and then fulvestrant beginning in 2016 and then tamoxifen 8. Letrozole and palbociclib 9. Xeloda again in November 2017 for about a year. 10. Exemestane and Afinitor from November 2018 through February 2019 11. Progression in the breast and chest wall confirmed by biopsy. She has started on navelbine on days 1 and 8 of a 21 day cycle. She has had 6 cycles thus far Interval history: The patient is a 64-year-old woman who returns today for follow-up. She has a history of metastatic breast cancer with primarily bony involvement. She has completed her 6th cycle of Navelbine and is due for her 7th today. She has been tolerating it generally fairly well. We did leave the dexamethasone out of her premeds. She notes that she has had a tiny bit of nausea but it has been easily controllable. She feels like heard jittery feeling and anxiety have been somewhat better with the absence of the dexamethasone. She did meet with primary care physician and has been holding her Abilify. She thinks this might have helped somewhat as well. She denies any new aches or pains. No shortness of breath or cough. No fevers or chills. Bowels have been moving normally. She has not noted any adenopathy. She is otherwise feeling well other than some fatigue. She denies any other changes in her health. - Patient Self-Reported Symptoms SR Constitution: Fatigue/Malaise SR ears, nose, mouth, throat issues: Cough SR respiratory issues: Mucous SR Skin issues: Hair loss or scalp prob, Nail changes SR Gastrointestinal issues: Heartburn SR Musculoskeletal issues: Muscle pain or cramps, Bone pain SR Neuro issues: Tremors or shaking Home Medications and Allergies Home Medications Medication Instructions Recorded Confirmed Type Tumeric 800 mg DAILY 04/30/19 08/14/19 History atorvastatin 10 mg PO DAILY 04/30/19 08/14/19 History bupropion HCl [Wellbutrin XL] 300 mg DAILY 04/30/19 08/14/19 History duloxetine [Cymbalta] 60 mg PO DAILY 04/30/19 08/14/19 History gabapentin 100 mg PO DAILY 04/30/19 08/14/19 History ginkgo biloba 30 mg DAILY 04/30/19 08/14/19 History melatonin 5 mg DAILY 04/30/19 08/14/19 History oxycodone 5 mg PO Q4-6H PRN 04/30/19 08/14/19 History prochlorperazine maleate 10 mg PO BID PRN 04/30/19 08/14/19 History [Compazine] pyridoxine (vitamin B6) [Vitamin 100 mg PO DAILY 04/30/19 08/14/19 History B-6] calcium carbonate [Tums] 200 mg DAILY 08/14/19 08/14/19 History cetirizine [Zyrtec] 10 mg DAILY 08/14/19 08/14/19 History cholecalciferol (vitamin D3) 5,000 unit DAILY 08/14/19 08/14/19 History [Vitamin D3] Allergies Allergy/AdvReac Type Severity Reaction Status Date / Time No Known Drug Allergies Allergy Verified 05/22/19 12:19 Exam Vital signs: Vital Signs Temp Pulse Resp BP Pulse Ox 08/14/19 10:07 97.2 F L 88 18 136/77 98 Intake and Output 08/13/19 08/14/19 08/14/19 23:59 07:59 15:59 Other: Weight 75 kg Patient Weight 08/14/19 23:59 Weight 75 kg - Constitutional positive no acute distress, positive average body habitus - Routine HEENT Exam Head: Present: normocephalic, atraumatic Eye: Present: EOMI, PERRL. Absent: conjunctival icterus, scleral injection ENT: Present: mucous membranes moist, oropharynx clear - Routine Neck Exam Present: supple. Absent: lymphadenopathy, thyromegaly - Routine Respiratory Exam Present: Clear to auscultation bilaterally. Absent: rales, wheezes - Routine Cardiovascular Exam Present: RRR, S1, S2. Absent: murmur - Routine Abdominal Exam Present: soft, normoactive bowel sounds. Absent: tenderness, organomegaly - Routine Extremities Exam Absent: cyanosis, clubbing, edema - Routine Back/Spine Exam Back/Spine: Absent: vertebral tenderness - Routine Skin Exam Present: intact. Absent: petechiae, rash - Routine Neurological Exam Present: alert, oriented X3 - Routine Psychiatric Exam Present: normal affect, normal thought process Results - Labs Laboratory Last Values WBC 8.5 X10^3/uL (4.5-11.0) 08/14/19 09:45 RBC 3.91 X10^6/uL (4.0-5.2) L 08/14/19 09:45 Hgb 12.4 g/dL (12.0-16.0) 08/14/19 09:45 Hct 36.8 % (36-46) 08/14/19 09:45 MCV 94.2 fL (80-100) 08/14/19 09:45 MCH 31.8 PG (26-34) 08/14/19 09:45 MCHC 33.8 % (30-36) 08/14/19 09:45 RDW 18.0 % (11.6-14.8) H 08/14/19 09:45 Plt Count 283 X10^3/uL (150-400) 08/14/19 09:45 Neut % (Auto) 73.5 % (50-75) 08/14/19 09:45 Lymph % (Auto) 14.5 % (25-40) L 08/14/19 09:45 [place] % (Auto) 8.5 % (3-14) 08/14/19 09:45 Eos % (Auto) 2.5 % (2-4) 08/14/19 09:45 Baso % (Auto) 1.0 % (0-2) 08/14/19 09:45 Neut # (Auto) 6200 /uL (8573-7617) 08/14/19 09:45 Lymph # (Auto) 1200 /uL (1698-8977) 08/14/19 09:45 [place] # (Auto) 700 /uL (0-900) 08/14/19 09:45 Eos # (Auto) 200 /uL (0-450) 08/14/19 09:45 Baso # (Auto) 100 /uL (0-100) 08/14/19 09:45 Total Counted 100 05/22/19 10:30 Seg Neutrophils % 52.0 % (38-70) 05/22/19 10:30 Band Neutrophils % 23.0 % (3-7) H 05/22/19 10:30 Lymphocytes % (Manual) 16.0 % (25-45) L 05/22/19 10:30 Monocytes % (Manual) 6.0 % (2-11) 05/22/19 10:30 Eosinophils % (Manual) 2.0 % (2-4) 05/22/19 10:30 Basophils % (Manual) 1.0 % (0-1) 05/22/19 10:30 Neutrophils # (Manual) 7725 /uL (5212-6621) H 05/22/19 10:30 Nucleated RBCs 1 #/Diff (-0) H 05/22/19 10:30 Differential Comment 05/22/19 10:30 RBC Morphology Not Reportable 05/22/19 10:30 Poikilocytosis 1+ H 05/22/19 10:30 Anisocytosis 2+ H 05/22/19 10:30 Sodium 140 mmol/L (137-145) 08/14/19 09:45 Potassium 4.2 mmol/L (3.4-5.1) 08/14/19 09:45 Chloride 101 mmol/L (98-107) 08/14/19 09:45 Carbon Dioxide 28 mmol/L (22-32) 08/14/19 09:45 BUN 16 mg/dL (7-17) 08/14/19 09:45 Creatinine 0.80 mg/dL (0.52-1.04) 08/14/19 09:45 Estimated GFR > 60.0 mL/min (>60) 08/14/19 09:45 BUN/Creatinine Ratio 20.0 (6-22) 08/14/19 09:45 Glucose 96 mg/dL (80-110) 08/14/19 09:45 Calcium 9.4 mg/dL (8.4-10.2) 08/14/19 09:45 Total Bilirubin 0.4 mg/dL (0.2-1.3) 08/14/19 09:45 AST 35 IU/L (14-36) 08/14/19 09:45 ALT 35 IU/L (9-52) 08/14/19 09:45 Alkaline Phosphatase 134 U/L (38-126) H 08/14/19 09:45 Total Protein 7.2 g/dL (6.3-8.2) 08/14/19 09:45 Albumin 4.4 g/dL (3.5-5.0) 08/14/19 09:45 Globulin 2.8 g/dL (1.7-4.1) 08/14/19 09:45 Albumin/Globulin Ratio 1.6 (1.0-2.8) 08/14/19 09:45 [facility] Ag 63.8 ng/mL (0.1-3.0) H 07/24/19 10:45 Breast [facility] Ag 46 U/mL (< 32) H 06/12/19 10:05 Assessment and Plan (1) Breast cancer Current visit: Yes Status: Acute 64-year-old woman with metastatic breast cancer. She has been tolerating her current chemotherapy with the expected toxicities. Her tumor marker has been steadily dropping. She has been clinically stable. She will continue with her current regimen return to clinic in about 3 weeks for follow-up. She will be due for CT scan in [place] probably in August or September.
[2019-08-14 10:55] LABS: Carcinoembryonic Antigen 43.3 ng/mL (0.1-3.0)
[2019-08-14] MEDS: SODIUM CHLORIDE 0.9% IV (11:54)
[2019-08-14] MEDS: VINORELBINE IV (11:54)
[2019-08-21 13:38] LABS: Add Manual Diff / Slide Review NO; Basophils Absolute Auto 0 /uL (0-100); Basophils Percent Auto 0.5 % (0-2); Eosinophils Absolute Auto 100 /uL (0-450); Eosinophils Percent Auto 3.1 % (2-4); Hematocrit 32.9 % (36-46); Hemoglobin 11.4 g/dL (12.0-16.0); Lymphocytes Absolute Auto 1100 /uL (1100-4500); Lymphocytes Percent Auto 23.5 % (25-40); Mean Corpuscular HGB Conc 34.8 % (30-36); Mean Corpuscular Hemoglobin 31.9 PG (26-34); Mean Corpuscular Volume 91.7 fL (80-100); Monocytes Absolute Auto 300 /uL (0-900); Monocytes Percent Auto 6.2 % (3-14); Neutrophils Absolute Auto 3000 /uL (1500-7000); Neutrophils Percent Auto 66.7 % (50-75); Platelet Count 344 X10^3/uL (150-400); Red Blood Cell Count 3.59 X10^6/uL (4.0-5.2); Red Cell Distribution Width 17.2 % (11.6-14.8); White Blood Cell Count 4.5 X10^3/uL (4.5-11.0)
[2019-08-21 13:54] LABS: Alanine Aminotransferase 40 IU/L (9-52); Albumin 4.2 g/dL (3.5-5.0); Albumin Globulin Ratio 1.6 (1.0-2.8); Alkaline Phosphatase 109 U/L (38-126); Aspartate Aminotransferase 35 IU/L (14-36); BUN Creatinine Ratio 22.9 (6-22); Bilirubin Total 0.4 mg/dL (0.2-1.3); Blood Urea Nitrogen 16 mg/dL (7-17); Calcium 9.3 mg/dL (8.4-10.2); Carbon Dioxide 30 mmol/L (22-32); Chloride 101 mmol/L (98-107); Estimated Glomerular Filt Rate > 60.0 mL/min (>60); Globulin 2.6 g/dL (1.7-4.1); Glucose 115 mg/dL (80-110); HEMOLYSIS < 15 (0-50); Potassium 3.9 mmol/L (3.4-5.1); Sodium 140 mmol/L (137-145); Total Protein 6.8 g/dL (6.3-8.2)
[2019-08-21] MEDS: SODIUM CHLORIDE 0.9% 100 ML 21 ML IV (14:19)
[2019-08-21 14:22] VITALS: BP 143/79; PULSE 89; RESP 20; TEMP 36.8; O2SAT 97
[2019-08-21] MEDS: SODIUM CHLORIDE 0.9% IV (15:05)
[2019-08-21] MEDS: VINORELBINE IV (15:05)
[2019-08-21] MEDS: PEGFILGRASTIM 6 MG/0.6 ML KIT SUBCUT (15:29)
[2019-09-04 11:07] LABS: Add Manual Diff / Slide Review NO; Basophils Absolute Auto 0 /uL (0-100); Basophils Percent Auto 0.2 % (0-2); Eosinophils Absolute Auto 200 /uL (0-450); Eosinophils Percent Auto 2.8 % (2-4); Hematocrit 38.2 % (36-46); Hemoglobin 12.8 g/dL (12.0-16.0); Lymphocytes Absolute Auto 1300 /uL (1100-4500); Lymphocytes Percent Auto 15.4 % (25-40); Mean Corpuscular HGB Conc 33.6 % (30-36); Mean Corpuscular Hemoglobin 31.6 PG (26-34); Mean Corpuscular Volume 94.1 fL (80-100); Monocytes Absolute Auto 500 /uL (0-900); Monocytes Percent Auto 6.3 % (3-14); Neutrophils Absolute Auto 6200 /uL (1500-7000); Neutrophils Percent Auto 75.3 % (50-75); Platelet Count 286 X10^3/uL (150-400); Red Blood Cell Count 4.06 X10^6/uL (4.0-5.2); White Blood Cell Count 8.2 X10^3/uL (4.5-11.0)
[2019-09-04 11:18] LABS: Alanine Aminotransferase 33 IU/L (9-52); Albumin 4.4 g/dL (3.5-5.0); Albumin Globulin Ratio 1.6 (1.0-2.8); Alkaline Phosphatase 118 U/L (38-126); Aspartate Aminotransferase 36 IU/L (14-36); Bilirubin Total 0.4 mg/dL (0.2-1.3); Blood Urea Nitrogen 20 mg/dL (7-17); Calcium 9.1 mg/dL (8.4-10.2); Carbon Dioxide 27 mmol/L (22-32); Chloride 102 mmol/L (98-107); Estimated Glomerular Filt Rate > 60.0 mL/min (>60); Globulin 2.8 g/dL (1.7-4.1); Glucose 129 mg/dL (80-110); HEMOLYSIS 17 (0-50); Sodium 139 mmol/L (137-145); Total Protein 7.2 g/dL (6.3-8.2)
[2019-09-04 11:23] VITALS: BP 125/77; PULSE 98; RESP 18; TEMP 36.8; O2SAT 98
--- NOTE | 2019-09-04 11:42 | P.PNONC_ITS ---
PN -Subjective Interval history: Diagnosis: Metastatic breast cancer Previous treatment: 1. Lumpectomy and axillary node biopsy on the left breast for a T2 N1, ER/NV positive, HER2 negative tumor in September 2006. She had 1 of 9 lymph nodes positive. Her primary tumor was 2.4 cm in size 2. 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 Adjuvant radiation finishing in March 2007 4. Tamoxifen. 5. Chest wall and bone recurrence detected in January 2011. She was treated with radiation 6. Xeloda and Xgeva 7. She had additional hormone therapy with letrozole, then anastrozole and then fulvestrant beginning in 2016 and then tamoxifen 8. Letrozole and palbociclib 9. Xeloda again in November 2017 for about a year. 10. Exemestane and Afinitor from November 2018 through February 2019 11. Progression in the breast and chest wall confirmed by biopsy. She has started on navelbine on days 1 and 8 of a 21 day cycle. She has had 7 cycles thus far Interval history: The patient is a 64-year-old woman who returns today for follow-up. She has a history of metastatic breast cancer with primarily bony involvement. She has completed her 7th cycle of Navelbine and is due for her 8th today. She has been tolerating it generally fairly well. She has noted some itching particularly on the scalp but to a lesser extent on the face. She has noted a little bit of eczema type rash around her mouth and eyes. She has been using some [id number] hydrocortisone occasionally. She is not having any nausea or vomiting. Her bowels have been moving normally. She has had some decrease in her appetite but her weight has been stable. She denies any shortness of breath or cough. She has not noticed any adenopathy. No new aches or pains. She denies any other changes in her health. She had been holding her Abilify over concerns that it might have been increasing her anxiety. Her symptoms did not improve and she since restarted the Abilify. She denies any other changes in her medications. - Patient Self-Reported Symptoms SR Constitution: Fatigue/Malaise SR ears, nose, mouth, throat issues: Cough SR respiratory issues: Mucous SR Skin issues: Hair loss or scalp prob, Nail changes SR Gastrointestinal issues: Heartburn SR Musculoskeletal issues: Muscle pain or cramps, Bone pain SR Neuro issues: Tremors or shaking Home Medications and Allergies Home Medications Medication Instructions Recorded Confirmed Type Tumeric 800 mg DAILY 04/30/19 09/04/19 History atorvastatin 10 mg PO DAILY 04/30/19 09/04/19 History bupropion HCl [Wellbutrin XL] 300 mg DAILY 04/30/19 09/04/19 History duloxetine [Cymbalta] 60 mg PO DAILY 04/30/19 09/04/19 History gabapentin 100 mg PO DAILY 04/30/19 09/04/19 History ginkgo biloba 30 mg DAILY 04/30/19 09/04/19 History melatonin 5 mg DAILY 04/30/19 09/04/19 History oxycodone 5 mg PO Q4-6H PRN 04/30/19 09/04/19 History prochlorperazine maleate 10 mg PO BID PRN 04/30/19 09/04/19 History [Compazine] pyridoxine (vitamin B6) [Vitamin 100 mg PO DAILY 04/30/19 09/04/19 History B-6] calcium carbonate [Tums] 200 mg DAILY 08/14/19 09/04/19 History cetirizine [Zyrtec] 10 mg DAILY 08/14/19 09/04/19 History cholecalciferol (vitamin D3) 5,000 unit DAILY 08/14/19 09/04/19 History [Vitamin D3] aripiprazole [Abilify] 2 mg DAILY 09/04/19 09/04/19 History Allergies Allergy/AdvReac Type Severity Reaction Status Date / Time No Known Drug Allergies Allergy Verified 05/22/19 12:19 Exam Vital signs: Vital Signs Temp Pulse Resp BP Pulse Ox 09/04/19 11:23 98.2 F 98 H 18 125/77 98 Intake and Output 09/03/19 09/04/19 09/04/19 23:59 07:59 15:59 Other: Weight 75.6 kg Patient Weight 09/04/19 23:59 Weight 75.6 kg - Constitutional positive no acute distress, positive average body habitus - Routine HEENT Exam Head: Present: normocephalic, atraumatic, CSF otorrhea Eye: Present: EOMI. Absent: conjunctival icterus ENT: Present: mucous membranes moist, oropharynx clear Comments: She does have some erythema in the nasal labial fold more so on the right. - Routine Neck Exam Present: supple. Absent: lymphadenopathy, thyromegaly - Routine Respiratory Exam Present: Clear to auscultation bilaterally. Absent: rales, wheezes - Routine Cardiovascular Exam Present: RRR, S1, S2. Absent: murmur - Routine Abdominal Exam Present: soft, normoactive bowel sounds. Absent: tenderness, organomegaly, mass - Routine Extremities Exam Absent: cyanosis, clubbing, edema - Routine Back/Spine Exam Back/Spine: Absent: vertebral tenderness - Routine Skin Exam Present: intact. Absent: petechiae, rash - Routine Neurological Exam Present: alert, oriented X3 - Routine Psychiatric Exam Present: normal affect, normal thought process Results - Labs Laboratory Last Values WBC 8.2 X10^3/uL (4.5-11.0) 09/04/19 11:00 RBC 4.06 X10^6/uL (4.0-5.2) 09/04/19 11:00 Hgb 12.8 g/dL (12.0-16.0) 09/04/19 11:00 Hct 38.2 % (36-46) 09/04/19 11:00 MCV 94.1 fL (80-100) 09/04/19 11:00 MCH 31.6 PG (26-34) 09/04/19 11:00 MCHC 33.6 % (30-36) 09/04/19 11:00 RDW 18.0 % (11.6-14.8) H 09/04/19 11:00 Plt Count 286 X10^3/uL (150-400) 09/04/19 11:00 Neut % (Auto) 75.3 % (50-75) H 09/04/19 11:00 Lymph % (Auto) 15.4 % (25-40) L 09/04/19 11:00 Hand % (Auto) 6.3 % (3-14) 09/04/19 11:00 Eos % (Auto) 2.8 % (2-4) 09/04/19 11:00 Baso % (Auto) 0.2 % (0-2) 09/04/19 11:00 Neut # (Auto) 6200 /uL (6302-3469) 09/04/19 11:00 Lymph # (Auto) 1300 /uL (9925-4813) 09/04/19 11:00 Hand # (Auto) 500 /uL (0-900) 09/04/19 11:00 Eos # (Auto) 200 /uL (0-450) 09/04/19 11:00 Baso # (Auto) 0 /uL (0-100) 09/04/19 11:00 Total Counted 100 05/22/19 10:30 Seg Neutrophils % 52.0 % (38-70) 05/22/19 10:30 Band Neutrophils % 23.0 % (3-7) H 05/22/19 10:30 Lymphocytes % (Manual) 16.0 % (25-45) L 05/22/19 10:30 Monocytes % (Manual) 6.0 % (2-11) 05/22/19 10:30 Eosinophils % (Manual) 2.0 % (2-4) 05/22/19 10:30 Basophils % (Manual) 1.0 % (0-1) 05/22/19 10:30 Neutrophils # (Manual) 7725 /uL (4774-4636) H 05/22/19 10:30 Nucleated RBCs 1 #/Diff (-0) H 05/22/19 10:30 Differential Comment 05/22/19 10:30 RBC Morphology Not Reportable 05/22/19 10:30 Poikilocytosis 1+ H 05/22/19 10:30 Anisocytosis 2+ H 05/22/19 10:30 Sodium 139 mmol/L (137-145) 09/04/19 11:00 Potassium 4.0 mmol/L (3.4-5.1) 09/04/19 11:00 Chloride 102 mmol/L (98-107) 09/04/19 11:00 Carbon Dioxide 27 mmol/L (22-32) 09/04/19 11:00 BUN 20 mg/dL (7-17) H 09/04/19 11:00 Creatinine 0.80 mg/dL (0.52-1.04) 09/04/19 11:00 Estimated GFR > 60.0 mL/min (>60) 09/04/19 11:00 BUN/Creatinine Ratio 25.0 (6-22) H 09/04/19 11:00 Glucose 129 mg/dL (80-110) H 09/04/19 11:00 Calcium 9.1 mg/dL (8.4-10.2) 09/04/19 11:00 Total Bilirubin 0.4 mg/dL (0.2-1.3) 09/04/19 11:00 AST 36 IU/L (14-36) 09/04/19 11:00 ALT 33 IU/L (9-52) 09/04/19 11:00 Alkaline Phosphatase 118 U/L (38-126) 09/04/19 11:00 Total Protein 7.2 g/dL (6.3-8.2) 09/04/19 11:00 Albumin 4.4 g/dL (3.5-5.0) 09/04/19 11:00 Globulin 2.8 g/dL (1.7-4.1) 09/04/19 11:00 Albumin/Globulin Ratio 1.6 (1.0-2.8) 09/04/19 11:00 [facility] Ag 43.3 ng/mL (0.1-3.0) H 08/14/19 09:45 Breast [facility] Ag 46 U/mL (< 32) H 06/12/19 10:05 Assessment and Plan (1) Breast cancer Current visit: Yes Status: Acute 64-year-old woman with metastatic breast cancer. She has been tolerating her current chemotherapy with the expected toxicities. Her tumor marker has been steadily dropping. She has been clinically stable. She will continue with her current regimen return to clinic in about 3 weeks for follow-up. She will be due for CT scan in [place] probably in September.
[2019-09-04] MEDS: SODIUM CHLORIDE 0.9% 100 ML 21 ML IV (12:09)
[2019-09-04] MEDS: VINORELBINE IV (12:11)
[2019-09-04] MEDS: SODIUM CHLORIDE 0.9% IV (12:11)
[2019-09-05 15:27] LABS: Carcinoembryonic Antigen 32.7 ng/mL (0.1-3.0)
[2019-09-11 13:09] LABS: Add Manual Diff / Slide Review NO; Basophils Absolute Auto 100 /uL (0-100); Basophils Percent Auto 1.4 % (0-2); Eosinophils Absolute Auto 100 /uL (0-450); Eosinophils Percent Auto 2.2 % (2-4); Hematocrit 35.2 % (36-46); Lymphocytes Absolute Auto 1200 /uL (1100-4500); Lymphocytes Percent Auto 23.6 % (25-40); Mean Corpuscular HGB Conc 34.2 % (30-36); Mean Corpuscular Hemoglobin 31.6 PG (26-34); Mean Corpuscular Volume 92.5 fL (80-100); Monocytes Absolute Auto 300 /uL (0-900); Monocytes Percent Auto 6.3 % (3-14); Neutrophils Absolute Auto 3300 /uL (1500-7000); Neutrophils Percent Auto 66.5 % (50-75); Platelet Count 326 X10^3/uL (150-400); Red Blood Cell Count 3.81 X10^6/uL (4.0-5.2); Red Cell Distribution Width 16.8 % (11.6-14.8)
[2019-09-11 13:11] VITALS: BP 137/79; PULSE 93; RESP 15; TEMP 36.7; O2SAT 97
[2019-09-11 13:22] LABS: Alanine Aminotransferase 40 IU/L (9-52); Albumin 4.4 g/dL (3.5-5.0); Albumin Globulin Ratio 1.6 (1.0-2.8); Alkaline Phosphatase 114 U/L (38-126); Aspartate Aminotransferase 39 IU/L (14-36); BUN Creatinine Ratio 24.3 (6-22); Bilirubin Total 0.4 mg/dL (0.2-1.3); Blood Urea Nitrogen 17 mg/dL (7-17); Calcium 9.4 mg/dL (8.4-10.2); Carbon Dioxide 28 mmol/L (22-32); Chloride 102 mmol/L (98-107); Estimated Glomerular Filt Rate > 60.0 mL/min (>60); Globulin 2.7 g/dL (1.7-4.1); Glucose 118 mg/dL (80-110); HEMOLYSIS < 15 (0-50); Potassium 4.2 mmol/L (3.4-5.1); Sodium 140 mmol/L (137-145); Total Protein 7.1 g/dL (6.3-8.2)
[2019-09-11] MEDS: SODIUM CHLORIDE 0.9% IV (14:41)
[2019-09-11] MEDS: VINORELBINE IV (14:41)
[2019-09-11] MEDS: PEGFILGRASTIM 6 MG/0.6 ML KIT SUBCUT (14:47)
[2019-09-25 13:40] LABS: Add Manual Diff / Slide Review NO; Basophils Absolute Auto 0 /uL (0-100); Basophils Percent Auto 0.2 % (0-2); Eosinophils Absolute Auto 200 /uL (0-450); Eosinophils Percent Auto 1.8 % (2-4); Hematocrit 37.9 % (36-46); Hemoglobin 12.8 g/dL (12.0-16.0); Lymphocytes Absolute Auto 1400 /uL (1100-4500); Lymphocytes Percent Auto 14.8 % (25-40); Mean Corpuscular HGB Conc 33.7 % (30-36); Mean Corpuscular Hemoglobin 31.6 PG (26-34); Mean Corpuscular Volume 93.5 fL (80-100); Monocytes Absolute Auto 600 /uL (0-900); Monocytes Percent Auto 6.8 % (3-14); Neutrophils Absolute Auto 7100 /uL (1500-7000); Neutrophils Percent Auto 76.4 % (50-75); Platelet Count 275 X10^3/uL (150-400); Red Blood Cell Count 4.06 X10^6/uL (4.0-5.2); Red Cell Distribution Width 18.1 % (11.6-14.8); White Blood Cell Count 9.3 X10^3/uL (4.5-11.0)
[2019-09-25 14:02] LABS: Alanine Aminotransferase 32 IU/L (<35); Albumin 4.7 g/dL (3.5-5.0); Albumin Globulin Ratio 1.7 (1.0-2.8); Alkaline Phosphatase 138 U/L (38-126); Aspartate Aminotransferase 37 IU/L (14-36); BUN Creatinine Ratio 26.3 (6-22); Bilirubin Total 0.5 mg/dL (0.2-1.3); Blood Urea Nitrogen 21 mg/dL (7-17); Calcium 9.7 mg/dL (8.4-10.2); Carbon Dioxide 28 mmol/L (22-32); Chloride 101 mmol/L (98-107); Estimated Glomerular Filt Rate > 60.0 mL/min (>60); Globulin 2.7 g/dL (1.7-4.1); Glucose 87 mg/dL (80-110); HEMOLYSIS 20 (0-50); Potassium 4.2 mmol/L (3.4-5.1); Sodium 139 mmol/L (137-145); Total Protein 7.4 g/dL (6.3-8.2)
[2019-09-25 14:33] LABS: Carcinoembryonic Antigen 29.9 ng/mL (0.1-3.0)
[2019-09-25] MEDS: SODIUM CHLORIDE 0.9% 100 ML 21 ML IV (15:04)
[2019-09-25] MEDS: VINORELBINE IV (15:04)
[2019-09-25] MEDS: SODIUM CHLORIDE 0.9% IV (15:04)
--- NOTE | 2019-09-25 15:35 | PC.NURSE ---
pt stable upon discharge
[2019-10-02 09:04] LABS: Add Manual Diff / Slide Review NO; Basophils Absolute Auto 0 /uL (0-100); Basophils Percent Auto 0.8 % (0-2); Eosinophils Absolute Auto 100 /uL (0-450); Eosinophils Percent Auto 2.5 % (2-4); Hematocrit 34.3 % (36-46); Hemoglobin 11.9 g/dL (12.0-16.0); Lymphocytes Absolute Auto 1200 /uL (1100-4500); Lymphocytes Percent Auto 25.5 % (25-40); Mean Corpuscular HGB Conc 34.8 % (30-36); Mean Corpuscular Hemoglobin 31.7 PG (26-34); Mean Corpuscular Volume 91.3 fL (80-100); Monocytes Absolute Auto 200 /uL (0-900); Monocytes Percent Auto 5.2 % (3-14); Neutrophils Absolute Auto 3000 /uL (1500-7000); Platelet Count 311 X10^3/uL (150-400); Red Blood Cell Count 3.76 X10^6/uL (4.0-5.2); Red Cell Distribution Width 17.2 % (11.6-14.8); White Blood Cell Count 4.6 X10^3/uL (4.5-11.0)
[2019-10-02 09:12] LABS: Alanine Aminotransferase 36 IU/L (<35); Albumin 4.2 g/dL (3.5-5.0); Albumin Globulin Ratio 1.7 (1.0-2.8); Alkaline Phosphatase 115 U/L (38-126); Aspartate Aminotransferase 37 IU/L (14-36); Bilirubin Total 0.4 mg/dL (0.2-1.3); Blood Urea Nitrogen 14 mg/dL (7-17); Calcium 9.1 mg/dL (8.4-10.2); Carbon Dioxide 27 mmol/L (22-32); Chloride 103 mmol/L (98-107); Estimated Glomerular Filt Rate > 60.0 mL/min (>60); Globulin 2.5 g/dL (1.7-4.1); Glucose 105 mg/dL (80-110); HEMOLYSIS < 15 (0-50); Potassium 3.9 mmol/L (3.4-5.1); Sodium 137 mmol/L (137-145); Total Protein 6.7 g/dL (6.3-8.2)
[2019-10-02] MEDS: SODIUM CHLORIDE 0.9% 100 ML 21 ML IV (09:44)
[2019-10-02] MEDS: SODIUM CHLORIDE 0.9% IV (10:32)
[2019-10-02] MEDS: VINORELBINE IV (10:32)
[2019-10-02] MEDS: PEGFILGRASTIM 6 MG/0.6 ML KIT SUBCUT (10:38)
--- NOTE | 2019-10-14 09:19 | ONC.SCHED ---
Patient unable to move her apt. to Monday
[2019-10-16 09:52] LABS: Add Manual Diff / Slide Review NO; Basophils Absolute Auto 100 /uL (0-100); Basophils Percent Auto 1.1 % (0-2); Eosinophils Absolute Auto 200 /uL (0-450); Eosinophils Percent Auto 2.1 % (2-4); Hematocrit 37.4 % (36-46); Hemoglobin 12.9 g/dL (12.0-16.0); Lymphocytes Absolute Auto 1300 /uL (1100-4500); Lymphocytes Percent Auto 14.9 % (25-40); Mean Corpuscular HGB Conc 34.4 % (30-36); Mean Corpuscular Hemoglobin 31.7 PG (26-34); Mean Corpuscular Volume 92.2 fL (80-100); Monocytes Absolute Auto 500 /uL (0-900); Monocytes Percent Auto 5.5 % (3-14); Neutrophils Absolute Auto 6800 /uL (1500-7000); Neutrophils Percent Auto 76.4 % (50-75); Platelet Count 264 X10^3/uL (150-400); Red Blood Cell Count 4.06 X10^6/uL (4.0-5.2); Red Cell Distribution Width 18.2 % (11.6-14.8); White Blood Cell Count 8.9 X10^3/uL (4.5-11.0)
[2019-10-16 09:54] VITALS: BP 144/73; PULSE 87; RESP 16; TEMP 36.3; O2SAT 99
[2019-10-16 10:02] LABS: Alanine Aminotransferase 31 IU/L (<35); Albumin 4.5 g/dL (3.5-5.0); Albumin Globulin Ratio 1.7 (1.0-2.8); Alkaline Phosphatase 142 U/L (38-126); Aspartate Aminotransferase 33 IU/L (14-36); BUN Creatinine Ratio 27.1 (6-22); Bilirubin Total 0.5 mg/dL (0.2-1.3); Blood Urea Nitrogen 19 mg/dL (7-17); Calcium 9.4 mg/dL (8.4-10.2); Carbon Dioxide 27 mmol/L (22-32); Chloride 104 mmol/L (98-107); Estimated Glomerular Filt Rate > 60.0 mL/min (>60); Globulin 2.6 g/dL (1.7-4.1); Glucose 126 mg/dL (80-110); HEMOLYSIS < 15 (0-50); Potassium 4.4 mmol/L (3.4-5.1); Sodium 139 mmol/L (137-145); Total Protein 7.1 g/dL (6.3-8.2)
--- NOTE | 2019-10-16 10:05 | ONC.PN ---
PN -Subjective Interval history: Diagnosis: Metastatic breast cancer Previous treatment: 1. Lumpectomy and axillary node biopsy on the left breast for a T2 N1, ER/MI positive, HER2 negative tumor in September 2006. She had 1 of 9 lymph nodes positive. Her primary tumor was 2.4 cm in size 2. 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 Adjuvant radiation finishing in March 2007 4. Tamoxifen. 5. Chest wall and bone recurrence detected in January 2011. She was treated with radiation 6. Xeloda and Xgeva 7. She had additional hormone therapy with letrozole, then anastrozole and then fulvestrant beginning in 2016 and then tamoxifen 8. Letrozole and palbociclib 9. Xeloda again in November 2017 for about a year. 10. Exemestane and Afinitor from November 2018 through February 2019 11. Progression in the breast and chest wall confirmed by biopsy. She has started on navelbine on days 1 and 8 of a 21 day cycle. She has had 8 cycles thus far Interval history: The patient is a 64-year-old woman who returns today for follow-up. She has a history of metastatic breast cancer with primarily bony involvement. She has completed her 8th cycle of Navelbine and is due for her 9th today. She has been tolerating it generally fairly well. She has had some difficulty with anxiety particularly during the 2nd week of treatment. She had been holding her Abilify but is back on it. She also takes duloxetine and BuSpar. She has had some nausea but no vomiting. Compazine seems to work well for her. She denies any new aches or pains. No fevers chills or sweats. Appetite has been low but stable. She does have some fatigue but finds it manageable. She has not noticed any skin rash. No diarrhea or constipation. She has not noticed any adenopathy. She denies any other changes in her health. She was seen down in [place] and had a CT scan. I have not seen the report yet but the patient tells me that it was stable. - Patient Self-Reported Symptoms SR Constitution: Fatigue/Malaise SR ears, nose, mouth, throat issues: Cough SR respiratory issues: Mucous SR Skin issues: Hair loss or scalp prob, Nail changes SR Gastrointestinal issues: Heartburn SR Musculoskeletal issues: Muscle pain or cramps, Bone pain SR Neuro issues: Tremors or shaking Home Medications and Allergies Home Medications Medication Instructions Recorded Confirmed Type Tumeric 800 mg DAILY 04/30/19 10/16/19 History atorvastatin 10 mg PO DAILY 04/30/19 10/16/19 History bupropion HCl [Wellbutrin XL] 300 mg DAILY 04/30/19 10/16/19 History duloxetine [Cymbalta] 60 mg PO DAILY 04/30/19 10/16/19 History gabapentin 100 mg PO DAILY 04/30/19 10/16/19 History ginkgo biloba 30 mg DAILY 04/30/19 10/16/19 History melatonin 5 mg DAILY 04/30/19 10/16/19 History oxycodone 5 mg PO Q4-6H PRN 04/30/19 10/16/19 History prochlorperazine maleate 10 mg PO BID PRN 04/30/19 10/16/19 History [Compazine] pyridoxine (vitamin B6) [Vitamin 100 mg PO DAILY 04/30/19 10/16/19 History B-6] calcium carbonate [Tums] 200 mg DAILY 08/14/19 10/16/19 History cetirizine [Zyrtec] 10 mg DAILY 08/14/19 10/16/19 History cholecalciferol (vitamin D3) 5,000 unit DAILY 08/14/19 10/16/19 History [Vitamin D3] aripiprazole [Abilify] 2 mg DAILY 09/04/19 10/16/19 History Allergies Allergy/AdvReac Type Severity Reaction Status Date / Time No Known Drug Allergies Allergy Verified 05/22/19 12:19 Exam Vital signs: Vital Signs Temp Pulse Resp BP Pulse Ox 10/16/19 09:54 97.3 F L 87 16 144/73 H 99 Intake and Output 10/15/19 10/16/19 10/16/19 23:59 07:59 15:59 Other: Weight 73.8 kg Patient Weight 10/16/19 23:59 Weight 73.8 kg - Constitutional positive no acute distress, positive average body habitus - Routine HEENT Exam Head: Present: normocephalic, atraumatic Eye: Present: EOMI, PERRL. Absent: conjunctival icterus, scleral injection ENT: Present: mucous membranes moist, oropharynx clear - Routine Neck Exam Present: supple. Absent: lymphadenopathy, thyromegaly - Routine Respiratory Exam Present: Clear to auscultation bilaterally. Absent: rales, wheezes - Routine Cardiovascular Exam Present: RRR, S1, S2. Absent: murmur - Routine Abdominal Exam Present: soft, normoactive bowel sounds. Absent: tenderness, organomegaly, mass - Routine Extremities Exam Absent: cyanosis, clubbing, edema - Routine Back/Spine Exam Back/Spine: Absent: vertebral tenderness - Routine Skin Exam Present: intact. Absent: petechiae, rash - Routine Neurological Exam Present: alert, oriented X3 - Routine Psychiatric Exam Present: normal affect, normal thought process Results - Labs Laboratory Last Values WBC 8.9 X10^3/uL (4.5-11.0) 10/16/19 09:40 RBC 4.06 X10^6/uL (4.0-5.2) 10/16/19 09:40 Hgb 12.9 g/dL (12.0-16.0) 10/16/19 09:40 Hct 37.4 % (36-46) 10/16/19 09:40 MCV 92.2 fL (80-100) 10/16/19 09:40 MCH 31.7 PG (26-34) 10/16/19 09:40 MCHC 34.4 % (30-36) 10/16/19 09:40 RDW 18.2 % (11.6-14.8) H 10/16/19 09:40 Plt Count 264 X10^3/uL (150-400) 10/16/19 09:40 Neut % (Auto) 76.4 % (50-75) H 10/16/19 09:40 Lymph % (Auto) 14.9 % (25-40) L 10/16/19 09:40 [place] % (Auto) 5.5 % (3-14) 10/16/19 09:40 Eos % (Auto) 2.1 % (2-4) 10/16/19 09:40 Baso % (Auto) 1.1 % (0-2) 10/16/19 09:40 Neut # (Auto) 6800 /uL (8686-0002) 10/16/19 09:40 Lymph # (Auto) 1300 /uL (8026-6658) 10/16/19 09:40 [place] # (Auto) 500 /uL (0-900) 10/16/19 09:40 Eos # (Auto) 200 /uL (0-450) 10/16/19 09:40 Baso # (Auto) 100 /uL (0-100) 10/16/19 09:40 Total Counted 100 05/22/19 10:30 Seg Neutrophils % 52.0 % (38-70) 05/22/19 10:30 Band Neutrophils % 23.0 % (3-7) H 05/22/19 10:30 Lymphocytes % (Manual) 16.0 % (25-45) L 05/22/19 10:30 Monocytes % (Manual) 6.0 % (2-11) 05/22/19 10:30 Eosinophils % (Manual) 2.0 % (2-4) 05/22/19 10:30 Basophils % (Manual) 1.0 % (0-1) 05/22/19 10:30 Neutrophils # (Manual) 7725 /uL (5874-8179) H 05/22/19 10:30 Nucleated RBCs 1 #/Diff (-0) H 05/22/19 10:30 Differential Comment 05/22/19 10:30 RBC Morphology Not Reportable 05/22/19 10:30 Poikilocytosis 1+ H 05/22/19 10:30 Anisocytosis 2+ H 05/22/19 10:30 Sodium 139 mmol/L (137-145) 10/16/19 09:40 Potassium 4.4 mmol/L (3.4-5.1) 10/16/19 09:40 Chloride 104 mmol/L (98-107) 10/16/19 09:40 Carbon Dioxide 27 mmol/L (22-32) 10/16/19 09:40 BUN 19 mg/dL (7-17) H 10/16/19 09:40 Creatinine 0.70 mg/dL (0.52-1.04) 10/16/19 09:40 Estimated GFR > 60.0 mL/min (>60) 10/16/19 09:40 BUN/Creatinine Ratio 27.1 (6-22) H 10/16/19 09:40 Glucose 126 mg/dL (80-110) H 10/16/19 09:40 Calcium 9.4 mg/dL (8.4-10.2) 10/16/19 09:40 Total Bilirubin 0.5 mg/dL (0.2-1.3) 10/16/19 09:40 AST 33 IU/L (14-36) 10/16/19 09:40 ALT 31 IU/L (<35) 10/16/19 09:40 Alkaline Phosphatase 142 U/L (38-126) H 10/16/19 09:40 Total Protein 7.1 g/dL (6.3-8.2) 10/16/19 09:40 Albumin 4.5 g/dL (3.5-5.0) 10/16/19 09:40 Globulin 2.6 g/dL (1.7-4.1) 10/16/19 09:40 Albumin/Globulin Ratio 1.7 (1.0-2.8) 10/16/19 09:40 [facility] Ag 29.9 ng/mL (0.1-3.0) H 09/25/19 13:32 Breast [facility] Ag 46 U/mL (< 32) H 06/12/19 10:05 Assessment and Plan (1) Breast cancer Current visit: Yes Status: Acute 64-year-old woman with metastatic breast cancer. She has been stable on Navelbine. She will continue with her current regimen. She did request a 2 week break after her upcoming cycle because of the holidays. I think that is quite reasonable. She will return to clinic in about 4 weeks or so for follow-up. She did as questions about potentially changing the schedule of the Navelbine to a 2 week on 2 week off schedule. I think given her clinical stability this would not be unreasonable. Another alternative might be an every other week dosing. She will return to clinic in about 3 or 4 weeks for follow-up.
[2019-10-16 10:42] LABS: Carcinoembryonic Antigen 25.4 ng/mL (0.1-3.0)
[2019-10-16] MEDS: SODIUM CHLORIDE 0.9% 100 ML 21 ML IV (11:02)
[2019-10-16] MEDS: VINORELBINE IV (11:03)
[2019-10-16] MEDS: SODIUM CHLORIDE 0.9% IV (11:03)
[2019-10-23 10:31] LABS: Add Manual Diff / Slide Review NO; Basophils Absolute Auto 100 /uL (0-100); Basophils Percent Auto 3.6 % (0-2); Eosinophils Absolute Auto 100 /uL (0-450); Eosinophils Percent Auto 2.1 % (2-4); Hematocrit 35.1 % (36-46); Hemoglobin 11.9 g/dL (12.0-16.0); Lymphocytes Absolute Auto 1100 /uL (1100-4500); Lymphocytes Percent Auto 30.7 % (25-40); Mean Corpuscular Hemoglobin 31.2 PG (26-34); Mean Corpuscular Volume 91.7 fL (80-100); Monocytes Absolute Auto 200 /uL (0-900); Neutrophils Absolute Auto 2100 /uL (1500-7000); Neutrophils Percent Auto 57.6 % (50-75); Platelet Count 307 X10^3/uL (150-400); Red Blood Cell Count 3.83 X10^6/uL (4.0-5.2); Red Cell Distribution Width 17.3 % (11.6-14.8); White Blood Cell Count 3.6 X10^3/uL (4.5-11.0)
[2019-10-23 10:44] LABS: Alanine Aminotransferase 30 IU/L (<35); Albumin 4.3 g/dL (3.5-5.0); Albumin Globulin Ratio 1.7 (1.0-2.8); Alkaline Phosphatase 108 U/L (38-126); Aspartate Aminotransferase 36 IU/L (14-36); BUN Creatinine Ratio 25.7 (6-22); Bilirubin Total 0.5 mg/dL (0.2-1.3); Blood Urea Nitrogen 18 mg/dL (7-17); Carbon Dioxide 28 mmol/L (22-32); Chloride 105 mmol/L (98-107); Estimated Glomerular Filt Rate > 60.0 mL/min (>60); Globulin 2.6 g/dL (1.7-4.1); Glucose 93 mg/dL (80-110); HEMOLYSIS < 15 (0-50); Potassium 4.4 mmol/L (3.4-5.1); Sodium 140 mmol/L (137-145); Total Protein 6.9 g/dL (6.3-8.2)
[2019-10-23 10:49] VITALS: BP 137/76; PULSE 85; RESP 18; TEMP 36.7; O2SAT 99
[2019-10-23] MEDS: SODIUM CHLORIDE 0.9% 100 ML 21 ML IV (11:49)
[2019-10-23] MEDS: VINORELBINE IV (11:49)
[2019-10-23] MEDS: SODIUM CHLORIDE 0.9% IV (11:49)
[2019-10-23] MEDS: PEGFILGRASTIM 6 MG/0.6 ML KIT SUBCUT (12:10)
[2019-11-12 09:10] VITALS: BP 157/84; PULSE 80; RESP 16; TEMP 36.8; O2SAT 100
--- NOTE | 2019-11-12 09:18 | P.PNONC_ITS ---
PN -Subjective Interval history: Diagnosis: Metastatic breast cancer Previous treatment: 1. Lumpectomy and axillary node biopsy on the left breast for a T2 N1, ER/LA positive, HER2 negative tumor in September 2006. She had 1 of 9 lymph nodes positive. Her primary tumor was 2.4 cm in size 2. 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 Adjuvant radiation finishing in March 2007 4. Tamoxifen. 5. Chest wall and bone recurrence detected in January 2011. She was treated with radiation 6. Xeloda and Xgeva 7. She had additional hormone therapy with letrozole, then anastrozole and then fulvestrant beginning in 2016 and then tamoxifen 8. Letrozole and palbociclib 9. Xeloda again in November 2017 for about a year. 10. Exemestane and Afinitor from November 2018 through February 2019 11. Progression in the breast and chest wall confirmed by biopsy. She has started on navelbine on days 1 and 8 of a 21 day cycle. She has had 10 cycles thus far Interval history: The patient is a 64-year-old woman who returns today for follow-up. She has a history of metastatic breast cancer with primarily bony involvement. She has completed her 10th cycle of Navelbine and is due for her 110th today. She did have a little bit of a delay in her chemotherapy last time because of fatigue. She feels better with the extra week off. She is not having any pain. She denies any nausea or vomiting. No shortness of breath or cough. Bowels have been moving normally. She otherwise is feeling well and has no specific complaints today. She is scheduled for some cataract surgery in November. - Patient Self-Reported Symptoms SR Constitution: Fatigue/Malaise SR ears, nose, mouth, throat issues: Cough SR respiratory issues: Mucous SR Skin issues: Hair loss or scalp prob, Nail changes SR Gastrointestinal issues: Heartburn SR Musculoskeletal issues: Muscle pain or cramps, Bone pain SR Neuro issues: Tremors or shaking Home Medications and Allergies Home Medications Medication Instructions Recorded Confirmed Type Tumeric 800 mg DAILY 04/30/19 11/12/19 History atorvastatin 10 mg PO DAILY 04/30/19 11/12/19 History bupropion HCl [Wellbutrin XL] 300 mg DAILY 04/30/19 11/12/19 History duloxetine [Cymbalta] 60 mg PO DAILY 04/30/19 11/12/19 History gabapentin 100 mg PO DAILY 04/30/19 11/12/19 History ginkgo biloba 30 mg DAILY 04/30/19 11/12/19 History melatonin 5 mg DAILY 04/30/19 11/12/19 History oxycodone 5 mg PO Q4-6H PRN 04/30/19 11/12/19 History prochlorperazine maleate 10 mg PO BID PRN 04/30/19 11/12/19 History [Compazine] pyridoxine (vitamin B6) [Vitamin 100 mg PO DAILY 04/30/19 11/12/19 History B-6] calcium carbonate [Tums] 200 mg DAILY 08/14/19 11/12/19 History cetirizine [Zyrtec] 10 mg DAILY 08/14/19 11/12/19 History cholecalciferol (vitamin D3) 5,000 unit DAILY 08/14/19 11/12/19 History [Vitamin D3] aripiprazole [Abilify] 2 mg DAILY 09/04/19 11/12/19 History Allergies Allergy/AdvReac Type Severity Reaction Status Date / Time No Known Drug Allergies Allergy Verified 05/22/19 12:19 Exam Vital signs: Vital Signs Temp Pulse Resp BP Pulse Ox 11/12/19 09:10 98.3 F 80 16 157/84 H 100 Intake and Output 11/11/19 11/12/19 11/12/19 23:59 07:59 15:59 Other: Weight 73.3 kg Patient Weight 11/12/19 23:59 Weight 73.3 kg - Constitutional positive no acute distress, positive average body habitus - Routine HEENT Exam Head: Present: normocephalic, atraumatic Eye: Present: EOMI, PERRL. Absent: conjunctival icterus, scleral injection ENT: Present: mucous membranes moist, oropharynx clear - Routine Neck Exam Present: supple. Absent: lymphadenopathy, thyromegaly - Routine Respiratory Exam Present: Clear to auscultation bilaterally. Absent: rales, wheezes - Routine Cardiovascular Exam Present: RRR, S1, S2. Absent: murmur - Routine Abdominal Exam Present: soft, normoactive bowel sounds. Absent: tenderness, organomegaly, mass - Routine Extremities Exam Absent: cyanosis, clubbing, edema - Routine Back/Spine Exam Back/Spine: Absent: vertebral tenderness - Routine Skin Exam Present: intact. Absent: petechiae, rash - Routine Neurological Exam Present: alert, oriented X3 - Routine Psychiatric Exam Present: normal affect, normal thought process Results - Labs Laboratory Last Values WBC 3.6 X10^3/uL (4.5-11.0) L 10/23/19 10:15 RBC 3.83 X10^6/uL (4.0-5.2) L 10/23/19 10:15 Hgb 11.9 g/dL (12.0-16.0) L 10/23/19 10:15 Hct 35.1 % (36-46) L 10/23/19 10:15 MCV 91.7 fL (80-100) 10/23/19 10:15 MCH 31.2 PG (26-34) 10/23/19 10:15 MCHC 34.0 % (30-36) 10/23/19 10:15 RDW 17.3 % (11.6-14.8) H 10/23/19 10:15 Plt Count 307 X10^3/uL (150-400) 10/23/19 10:15 Neut % (Auto) 57.6 % (50-75) 10/23/19 10:15 Lymph % (Auto) 30.7 % (25-40) 10/23/19 10:15 [place] % (Auto) 6.0 % (3-14) 10/23/19 10:15 Eos % (Auto) 2.1 % (2-4) 10/23/19 10:15 Baso % (Auto) 3.6 % (0-2) H 10/23/19 10:15 Neut # (Auto) 2100 /uL (4548-2403) 10/23/19 10:15 Lymph # (Auto) 1100 /uL (8120-5527) 10/23/19 10:15 [place] # (Auto) 200 /uL (0-900) 10/23/19 10:15 Eos # (Auto) 100 /uL (0-450) 10/23/19 10:15 Baso # (Auto) 100 /uL (0-100) 10/23/19 10:15 Total Counted 100 05/22/19 10:30 Seg Neutrophils % 52.0 % (38-70) 05/22/19 10:30 Band Neutrophils % 23.0 % (3-7) H 05/22/19 10:30 Lymphocytes % (Manual) 16.0 % (25-45) L 05/22/19 10:30 Monocytes % (Manual) 6.0 % (2-11) 05/22/19 10:30 Eosinophils % (Manual) 2.0 % (2-4) 05/22/19 10:30 Basophils % (Manual) 1.0 % (0-1) 05/22/19 10:30 Neutrophils # (Manual) 7725 /uL (8153-2514) H 05/22/19 10:30 Nucleated RBCs 1 #/Diff (-0) H 05/22/19 10:30 Differential Comment 05/22/19 10:30 RBC Morphology Not Reportable 05/22/19 10:30 Poikilocytosis 1+ H 05/22/19 10:30 Anisocytosis 2+ H 05/22/19 10:30 Sodium 140 mmol/L (137-145) 10/23/19 10:15 Potassium 4.4 mmol/L (3.4-5.1) 10/23/19 10:15 Chloride 105 mmol/L (98-107) 10/23/19 10:15 Carbon Dioxide 28 mmol/L (22-32) 10/23/19 10:15 BUN 18 mg/dL (7-17) H 10/23/19 10:15 Creatinine 0.70 mg/dL (0.52-1.04) 10/23/19 10:15 Estimated GFR > 60.0 mL/min (>60) 10/23/19 10:15 BUN/Creatinine Ratio 25.7 (6-22) H 10/23/19 10:15 Glucose 93 mg/dL (80-110) 10/23/19 10:15 Calcium 9.0 mg/dL (8.4-10.2) 10/23/19 10:15 Total Bilirubin 0.5 mg/dL (0.2-1.3) 10/23/19 10:15 AST 36 IU/L (14-36) 10/23/19 10:15 ALT 30 IU/L (<35) 10/23/19 10:15 Alkaline Phosphatase 108 U/L (38-126) 10/23/19 10:15 Total Protein 6.9 g/dL (6.3-8.2) 10/23/19 10:15 Albumin 4.3 g/dL (3.5-5.0) 10/23/19 10:15 Globulin 2.6 g/dL (1.7-4.1) 10/23/19 10:15 Albumin/Globulin Ratio 1.7 (1.0-2.8) 10/23/19 10:15 Carcinoembry[facility] Ag 25.4 ng/mL (0.1-3.0) H 10/16/19 09:40 Breast [facility] Ag 46 U/mL (< 32) H 06/12/19 10:05 Assessment and Plan (1) Breast cancer Current visit: Yes Status: Acute 64-year-old woman with metastatic breast cancer. She has been stable on Navelbine. She will continue with her current regimen. She'll return to clinic in about 3 weeks for follow-up. On her next cycle, she'll need a delay of day 8 treatment because of her eye surgery. She will be due for another CT scan I would anticipate probably in December.
[2019-11-12 09:23] LABS: Add Manual Diff / Slide Review NO; Basophils Absolute Auto 100 /uL (0-100); Basophils Percent Auto 1.6 % (0-2); Eosinophils Absolute Auto 100 /uL (0-450); Eosinophils Percent Auto 1.9 % (2-4); Hematocrit 35.4 % (36-46); Hemoglobin 12.2 g/dL (12.0-16.0); Lymphocytes Absolute Auto 1200 /uL (1100-4500); Lymphocytes Percent Auto 17.8 % (25-40); Mean Corpuscular HGB Conc 34.6 % (30-36); Mean Corpuscular Hemoglobin 31.7 PG (26-34); Mean Corpuscular Volume 91.6 fL (80-100); Monocytes Absolute Auto 600 /uL (0-900); Monocytes Percent Auto 9.8 % (3-14); Neutrophils Absolute Auto 4500 /uL (1500-7000); Neutrophils Percent Auto 68.9 % (50-75); Platelet Count 298 X10^3/uL (150-400); Red Blood Cell Count 3.86 X10^6/uL (4.0-5.2); Red Cell Distribution Width 18.1 % (11.6-14.8); White Blood Cell Count 6.5 X10^3/uL (4.5-11.0)
[2019-11-12 09:24] LABS: Alanine Aminotransferase 20 IU/L (<35); Albumin 4.1 g/dL (3.5-5.0); Albumin Globulin Ratio 1.6 (1.0-2.8); Alkaline Phosphatase 103 U/L (38-126); Aspartate Aminotransferase 29 IU/L (14-36); BUN Creatinine Ratio 25.7 (6-22); Bilirubin Total 0.4 mg/dL (0.2-1.3); Blood Urea Nitrogen 18 mg/dL (7-17); Calcium 8.7 mg/dL (8.4-10.2); Carbon Dioxide 26 mmol/L (22-32); Chloride 104 mmol/L (98-107); Estimated Glomerular Filt Rate > 60.0 mL/min (>60); Globulin 2.6 g/dL (1.7-4.1); Glucose 86 mg/dL (80-110); HEMOLYSIS < 15 (0-50); Potassium 4.2 mmol/L (3.4-5.1); Sodium 137 mmol/L (137-145); Total Protein 6.7 g/dL (6.3-8.2)
[2019-11-12] MEDS: SODIUM CHLORIDE 0.9% 100 ML 21 ML IV (09:51)
[2019-11-12] MEDS: VINORELBINE IV (10:22)
[2019-11-12] MEDS: SODIUM CHLORIDE 0.9% IV (10:22)
[2019-11-19 10:11] LABS: Add Manual Diff / Slide Review NO; Basophils Absolute Auto 0 /uL (0-100); Basophils Percent Auto 0.3 % (0-2); Eosinophils Absolute Auto 200 /uL (0-450); Eosinophils Percent Auto 4.6 % (2-4); Hematocrit 37.1 % (36-46); Hemoglobin 12.6 g/dL (12.0-16.0); Lymphocytes Absolute Auto 1100 /uL (1100-4500); Lymphocytes Percent Auto 25.2 % (25-40); Mean Corpuscular HGB Conc 33.9 % (30-36); Mean Corpuscular Hemoglobin 31.2 PG (26-34); Mean Corpuscular Volume 92.1 fL (80-100); Monocytes Absolute Auto 200 /uL (0-900); Monocytes Percent Auto 4.8 % (3-14); Neutrophils Absolute Auto 2900 /uL (1500-7000); Neutrophils Percent Auto 65.1 % (50-75); Platelet Count 261 X10^3/uL (150-400); Red Blood Cell Count 4.03 X10^6/uL (4.0-5.2); Red Cell Distribution Width 17.5 % (11.6-14.8); White Blood Cell Count 4.5 X10^3/uL (4.5-11.0)
[2019-11-19 10:21] LABS: Alanine Aminotransferase 31 IU/L (<35); Albumin 4.3 g/dL (3.5-5.0); Albumin Globulin Ratio 1.7 (1.0-2.8); Alkaline Phosphatase 109 U/L (38-126); Aspartate Aminotransferase 35 IU/L (14-36); Bilirubin Total 0.4 mg/dL (0.2-1.3); Blood Urea Nitrogen 21 mg/dL (7-17); Calcium 9.5 mg/dL (8.4-10.2); Carbon Dioxide 29 mmol/L (22-32); Chloride 102 mmol/L (98-107); Estimated Glomerular Filt Rate > 60.0 mL/min (>60); Globulin 2.6 g/dL (1.7-4.1); Glucose 97 mg/dL (80-110); HEMOLYSIS < 15 (0-50); Potassium 4.2 mmol/L (3.4-5.1); Sodium 140 mmol/L (137-145); Total Protein 6.9 g/dL (6.3-8.2)
[2019-11-19] MEDS: SODIUM CHLORIDE 0.9% 100 ML 21 ML IV (11:05)
[2019-11-19] MEDS: SODIUM CHLORIDE 0.9% IV (11:06)
[2019-11-19] MEDS: VINORELBINE IV (11:06)
[2019-11-19] MEDS: PEGFILGRASTIM 6 MG/0.6 ML KIT SUBCUT (11:26)
--- NOTE | 2019-12-03 09:38 | P.PNONC_ITS ---
PN -Subjective Interval history: ID/CC: 64 year old female with metastatic breast cancer Previous treatment: 1. Lumpectomy and axillary node biopsy on the left breast for a T2 N1, ER/CT positive, HER2 negative tumor in September 2006. She had 1 of 9 lymph nodes positive. Her primary tumor was 2.4 cm in size 2. 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 Adjuvant radiation finishing in March 2007 4. Tamoxifen. 5. Chest wall and bone recurrence detected in January 2011. She was treated with radiation 6. Xeloda and Xgeva 7. She had additional hormone therapy with letrozole, then anastrozole and then fulvestrant beginning in 2016 and then tamoxifen 8. Letrozole and palbociclib 9. Xeloda again in November 2017 for about a year. 10. Exemestane and Afinitor from November 2018 through February 2019 11. Progression in the breast and chest wall confirmed by biopsy. She has star rach on navelbine on days 1 and 8 of a 21 day cycle. She has had 10 cycles thus far Interval history: Patient is here to continue treatment with Navelbine. Clinically patient said that she has a fairly good energy level. She denies any shortness of breath or chest pain. She had cataract surgery probably early this month. She is scheduled for another surgery of the right eye next week. She she has mild nausea and is using Compazine with good control. She denies abdominal pain. Denies diarrhea or constipation. But she does have acid reflux at is currently using Nexium and ranitidine. She is planning to see Dr. Rachel Wilson at [place] in December 2019. - Patient Self-Reported Symptoms SR Constitution: Fatigue/Malaise SR ears, nose, mouth, throat issues: Cough SR respiratory issues: Mucous SR Skin issues: Hair loss or scalp prob, Nail changes SR Gastrointestinal issues: Heartburn SR Musculoskeletal issues: Muscle pain or cramps, Bone pain SR Neuro issues: Tremors or shaking - Additional ROS All systems PM: reviewed and no additional remarkable complaints except as stated Home Medications and Allergies Home Medications Medication Instructions Recorded Confirmed Type Tumeric 800 mg DAILY 04/30/19 11/12/19 History atorvastatin 10 mg PO DAILY 04/30/19 11/12/19 History bupropion HCl [Wellbutrin XL] 300 mg DAILY 04/30/19 11/12/19 History duloxetine [Cymbalta] 60 mg PO DAILY 04/30/19 11/12/19 History gabapentin 100 mg PO DAILY 04/30/19 11/12/19 History ginkgo biloba 30 mg DAILY 04/30/19 11/12/19 History melatonin 5 mg DAILY 04/30/19 11/12/19 History oxycodone 5 mg PO Q4-6H PRN 04/30/19 11/12/19 History prochlorperazine maleate 10 mg PO BID PRN 04/30/19 11/12/19 History [Compazine] pyridoxine (vitamin B6) [Vitamin 100 mg PO DAILY 04/30/19 11/12/19 History B-6] calcium carbonate [Tums] 200 mg DAILY 08/14/19 11/12/19 History cetirizine [Zyrtec] 10 mg DAILY 08/14/19 11/12/19 History cholecalciferol (vitamin D3) 5,000 unit DAILY 08/14/19 11/12/19 History [Vitamin D3] aripiprazole [Abilify] 2 mg DAILY 09/04/19 11/12/19 History esomeprazole magnesium [Nexium] 20 mg PO DAILY 12/03/19 12/03/19 History Allergies Allergy/AdvReac Type Severity Reaction Status Date / Time No Known Drug Allergies Allergy Verified 05/22/19 12: Exam Vital signs: Last Vital Signs Temp 97.9 F 12/03/19 10:00 Pulse 83 12/03/19 10:00 Resp 16 12/03/19 10:00 BP 138/82 12/03/19 10:00 Pulse Ox 97 12/03/19 10:00 ECOG 1 Narrative: Gen: WDWN, NAD, pleasant and cooperative. Accompanied by his . HEENT: NCAT, EOMI, PERRLA, anicteric sclera. Neck: Supple, No palpable thyromegaly or lymphadenopathy. Respiratory: CTAB, no wheezes audible. No JVD Cardiovascular: RRR, S1 and S2 normal, no M/G/R. Abdomen: Soft, NTND, BS normal, no palpable organomegaly Extremities: No LE pitting edema. Lymphatic: no palpable lymph nodes in the neck, axillae, or groins. Neurological: AOx3, CN II-XII grossly intact. No focal motor or sensory deficit. Psychiatric:Normal affect; No depression; No anxiety. Results - Labs Laboratory Last Values WBC 4.5 X10^3/uL (4.5-11.0) 11/19/19 10:00 RBC 4.03 X10^6/uL (4.0-5.2) 11/19/19 10:00 Hgb 12.6 g/dL (12.0-16.0) 11/19/19 10:00 Hct 37.1 % (36-46) 11/19/19 10:00 MCV 92.1 fL (80-100) 11/19/19 10:00 MCH 31.2 PG (26-34) 11/19/19 10:00 MCHC 33.9 % (30-36) 11/19/19 10:00 RDW 17.5 % (11.6-14.8) H 11/19/19 10:00 Plt Count 261 X10^3/uL (150-400) 11/19/19 10:00 Neut % (Auto) 65.1 % (50-75) 11/19/19 10:00 Lymph % (Auto) 25.2 % (25-40) 11/19/19 10:00 Caroline % (Auto) 4.8 % (3-14) 11/19/19 10:00 Eos % (Auto) 4.6 % (2-4) H 11/19/19 10:00 Baso % (Auto) 0.3 % (0-2) 11/19/19 10:00 Neut # (Auto) 2900 /uL (6287-3137) 11/19/19 10:00 Lymph # (Auto) 1100 /uL (8077-4870) 11/19/19 10:00 Caroline # (Auto) 200 /uL (0-900) 11/19/19 10:00 Eos # (Auto) 200 /uL (0-450) 11/19/19 10:00 Baso # (Auto) 0 /uL (0-100) 11/19/19 10:00 Total Counted 100 05/22/19 10:30 Seg Neutrophils % 52.0 % (38-70) 05/22/19 10:30 Band Neutrophils % 23.0 % (3-7) H 05/22/19 10:30 Lymphocytes % (Manual) 16.0 % (25-45) L 05/22/19 10:30 Monocytes % (Manual) 6.0 % (2-11) 05/22/19 10:30 Eosinophils % (Manual) 2.0 % (2-4) 05/22/19 10:30 Basophils % (Manual) 1.0 % (0-1) 05/22/19 10:30 Neutrophils # (Manual) 7725 /uL (1224-3616) H 05/22/19 10:30 Nucleated RBCs 1 #/Diff (-0) H 05/22/19 10:30 Differential Comment 05/22/19 10:30 RBC Morphology Not Reportable 05/22/19 10:30 Poikilocytosis 1+ H 05/22/19 10:30 Anisocytosis 2+ H 05/22/19 10:30 Sodium 140 mmol/L (137-145) 11/19/19 10:00 Potassium 4.2 mmol/L (3.4-5.1) 11/19/19 10:00 Chloride 102 mmol/L (98-107) 11/19/19 10:00 Carbon Dioxide 29 mmol/L (22-32) 11/19/19 10:00 BUN 21 mg/dL (7-17) H 11/19/19 10:00 Creatinine 0.70 mg/dL (0.52-1.04) 11/19/19 10:00 Estimated GFR > 60.0 mL/min (>60) 11/19/19 10:00 BUN/Creatinine Ratio 30.0 (6-22) H 11/19/19 10:00 Glucose 97 mg/dL (80-110) 11/19/19 10:00 Calcium 9.5 mg/dL (8.4-10.2) 11/19/19 10:00 Total Bilirubin 0.4 mg/dL (0.2-1.3) 11/19/19 10:00 AST 35 IU/L (14-36) 11/19/19 10:00 ALT 31 IU/L (<35) 11/19/19 10:00 Alkaline Phosphatase 109 U/L (38-126) 11/19/19 10:00 Total Protein 6.9 g/dL (6.3-8.2) 11/19/19 10:00 Albumin 4.3 g/dL (3.5-5.0) 11/19/19 10:00 Globulin 2.6 g/dL (1.7-4.1) 11/19/19 10:00 Albumin/Globulin Ratio 1.7 (1.0-2.8) 11/19/19 10:00 Carcinoembry[facility] Ag 23.0 ng/mL (0.1-3.0) H 11/12/19 09:00 Breast [facility] Ag 46 U/mL (< 32) H 06/12/19 10:05 Assessment and Plan (1) Breast cancer Overveiw: 1. Left-sided ER/CT+, HER2- pT2 N1 breast cancer status psot lumpectomy and axillary node biopsy in 09/2006. Primary tumor 2.4 cm. One of 9 nodes positive. She underwent adjuvant Adriamycin and Cytoxan followed by Taxol for 9 weeks stopped due to neuropathy. She completed adjuvant radiation finishing in March 2007, and Tamoxifen. 2. Chest wall and bone recurrence detected in January 2011. She was treated with radiation. Xeloda and Xgeva. she had additional hormone therapy with letrozole, then anastrozole and then fulvestrant beginning in 2016 and then tamoxifen. Additional treatment with Letrozole and palbociclib. Xeloda again in November 2017 for about a year. Exemestane and Afinitor from November 2018 through February 2019 3. Progression in the breast and chest wall confirmed by biopsy. She has started on navelbine on days 1 and 8 every 21 days Assessment: Clinically I think she has tolerated the never been extremely well. Patient has scheduled visit with Dr. Cely Wilson and [facility] and at [facility] early December. She would like to defer any imaging studies after she visits Dr. Cely Wilson. Today I reviewed the lab results with the patient. I will proceed with scheduled chemotherapy with Navelbine. Plan: 1. Ok to proceed to Navelbine today 2. RTC in 2 weeks for C12D15 Navelbine 3. Follow up with Dr. Rachel Wilson as scheduled. 4. RTC C13D1, chemotherapy and follow up visit.
[2019-12-03 09:57] LABS: Add Manual Diff / Slide Review NO; Basophils Absolute Auto 0 /uL (0-100); Basophils Percent Auto 0.5 % (0-2); Eosinophils Absolute Auto 200 /uL (0-450); Eosinophils Percent Auto 2.4 % (2-4); Hematocrit 40.3 % (36-46); Hemoglobin 13.4 g/dL (12.0-16.0); Lymphocytes Absolute Auto 1400 /uL (1100-4500); Lymphocytes Percent Auto 17.6 % (25-40); Mean Corpuscular HGB Conc 33.3 % (30-36); Mean Corpuscular Hemoglobin 30.7 PG (26-34); Mean Corpuscular Volume 92.4 fL (80-100); Monocytes Absolute Auto 500 /uL (0-900); Monocytes Percent Auto 6.6 % (3-14); Neutrophils Absolute Auto 5700 /uL (1500-7000); Neutrophils Percent Auto 72.9 % (50-75); Platelet Count 252 X10^3/uL (150-400); Red Blood Cell Count 4.36 X10^6/uL (4.0-5.2); Red Cell Distribution Width 17.3 % (11.6-14.8); White Blood Cell Count 7.8 X10^3/uL (4.5-11.0)
[2019-12-03 10:00] VITALS: BP 138/82; PULSE 83; RESP 16; TEMP 36.6; O2SAT 97
[2019-12-03 10:06] LABS: Alanine Aminotransferase 24 IU/L (<35); Albumin 4.6 g/dL (3.5-5.0); Albumin Globulin Ratio 1.6 (1.0-2.8); Alkaline Phosphatase 116 U/L (38-126); Aspartate Aminotransferase 28 IU/L (14-36); Bilirubin Total 0.5 mg/dL (0.2-1.3); Blood Urea Nitrogen 20 mg/dL (7-17); Calcium 9.2 mg/dL (8.4-10.2); Carbon Dioxide 27 mmol/L (22-32); Chloride 105 mmol/L (98-107); Estimated Glomerular Filt Rate > 60.0 mL/min (>60); Globulin 2.9 g/dL (1.7-4.1); Glucose 92 mg/dL (80-110); HEMOLYSIS < 15 (0-50); Potassium 4.3 mmol/L (3.4-5.1); Sodium 140 mmol/L (137-145); Total Protein 7.5 g/dL (6.3-8.2)
[2019-12-03 10:46] LABS: Carcinoembryonic Antigen 26.7 ng/mL (0.1-3.0)
[2019-12-03] MEDS: SODIUM CHLORIDE 0.9% 100 ML 30 ML IV (11:14)
[2019-12-03] MEDS: VINORELBINE IV (11:15)
[2019-12-03] MEDS: SODIUM CHLORIDE 0.9% IV (11:15)
[2019-12-17 14:02] LABS: Add Manual Diff / Slide Review NO; Basophils Absolute Auto 100 /uL (0-100); Basophils Percent Auto 2.5 % (0-2); Eosinophils Absolute Auto 200 /uL (0-450); Eosinophils Percent Auto 4.6 % (2-4); Hematocrit 38.2 % (36-46); Lymphocytes Absolute Auto 1200 /uL (1100-4500); Lymphocytes Percent Auto 24.5 % (25-40); Mean Corpuscular HGB Conc 34.1 % (30-36); Mean Corpuscular Hemoglobin 31.1 PG (26-34); Mean Corpuscular Volume 91.2 fL (80-100); Monocytes Absolute Auto 500 /uL (0-900); Monocytes Percent Auto 9.5 % (3-14); Neutrophils Absolute Auto 2900 /uL (1500-7000); Neutrophils Percent Auto 58.9 % (50-75); Platelet Count 326 X10^3/uL (150-400); Red Blood Cell Count 4.19 X10^6/uL (4.0-5.2); Red Cell Distribution Width 16.7 % (11.6-14.8)
[2019-12-17 14:15] LABS: Alanine Aminotransferase 26 IU/L (<35); Albumin 4.4 g/dL (3.5-5.0); Albumin Globulin Ratio 1.4 (1.0-2.8); Alkaline Phosphatase 105 U/L (38-126); Aspartate Aminotransferase 34 IU/L (14-36); BUN Creatinine Ratio 25.7 (6-22); Bilirubin Total 0.5 mg/dL (0.2-1.3); Blood Urea Nitrogen 18 mg/dL (7-17); Calcium 9.6 mg/dL (8.4-10.2); Carbon Dioxide 27 mmol/L (22-32); Chloride 101 mmol/L (98-107); Estimated Glomerular Filt Rate > 60.0 mL/min (>60); Globulin 3.2 g/dL (1.7-4.1); Glucose 129 mg/dL (80-110); HEMOLYSIS < 15 (0-50); Potassium 4.1 mmol/L (3.4-5.1); Sodium 139 mmol/L (137-145); Total Protein 7.6 g/dL (6.3-8.2)
[2019-12-17 14:16] VITALS: BP 144/77; PULSE 89; RESP 16; TEMP 36.7; O2SAT 99
[2019-12-17] MEDS: SODIUM CHLORIDE 0.9% IV (15:49)
[2019-12-17] MEDS: VINORELBINE IV (15:49)
[2019-12-17] MEDS: SODIUM CHLORIDE 0.9% 100 ML 21 ML IV (15:49)
[2019-12-17] MEDS: PEGFILGRASTIM 6 MG/0.6 ML KIT SUBCUT (16:06)
[2019-12-31 10:00] LABS: Add Manual Diff / Slide Review NO; Basophils Absolute Auto 100 /uL (0-100); Eosinophils Absolute Auto 200 /uL (0-450); Eosinophils Percent Auto 3.1 % (2-4); Hematocrit 39.2 % (36-46); Hemoglobin 13.3 g/dL (12.0-16.0); Lymphocytes Absolute Auto 1200 /uL (1100-4500); Lymphocytes Percent Auto 15.2 % (25-40); Mean Corpuscular Hemoglobin 31.1 PG (26-34); Mean Corpuscular Volume 91.5 fL (80-100); Monocytes Absolute Auto 400 /uL (0-900); Monocytes Percent Auto 4.9 % (3-14); Neutrophils Absolute Auto 6100 /uL (1500-7000); Neutrophils Percent Auto 75.8 % (50-75); Platelet Count 214 X10^3/uL (150-400); Red Blood Cell Count 4.29 X10^6/uL (4.0-5.2); Red Cell Distribution Width 16.8 % (11.6-14.8)
[2019-12-31 10:19] LABS: Alanine Aminotransferase 26 IU/L (<35); Albumin 4.6 g/dL (3.5-5.0); Albumin Globulin Ratio 1.6 (1.0-2.8); Alkaline Phosphatase 121 U/L (38-126); Aspartate Aminotransferase 29 IU/L (14-36); BUN Creatinine Ratio 24.3 (6-22); Bilirubin Total 0.4 mg/dL (0.2-1.3); Blood Urea Nitrogen 17 mg/dL (7-17); Calcium 9.5 mg/dL (8.4-10.2); Carbon Dioxide 27 mmol/L (22-32); Chloride 103 mmol/L (98-107); Estimated Glomerular Filt Rate > 60.0 mL/min (>60); Globulin 2.9 g/dL (1.7-4.1); Glucose 98 mg/dL (80-110); HEMOLYSIS < 15 (0-50); Potassium 4.2 mmol/L (3.4-5.1); Sodium 141 mmol/L (137-145); Total Protein 7.5 g/dL (6.3-8.2)
[2019-12-31 10:30] VITALS: BP 154/61; PULSE 82; RESP 16; TEMP 36.7; O2SAT 100
--- NOTE | 2019-12-31 10:43 | ONC.PN ---
PN -Subjective Interval history: ID/CC: 64 year old female with metastatic breast cancer Previous treatment: 1. Lumpectomy and axillary node biopsy on the left breast for a T2 N1, ER/VT positive, HER2 negative tumor in September 2006. She had 1 of 9 lymph nodes positive. Her primary tumor was 2.4 cm in size 2. 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 Adjuvant radiation finishing in March 2007 4. Tamoxifen. 5. Chest wall and bone recurrence detected in January 2011. She was treated with radiation 6. Xeloda and Xgeva 7. She had additional hormone therapy with letrozole, then anastrozole and then fulvestrant beginning in 2016 and then tamoxifen 8. Letrozole and palbociclib 9. Xeloda again in November 2017 for about a year. 10. Exemestane and Afinitor from November 2018 through February 2019 11. Progression in the breast and chest wall confirmed by biopsy. She has started on navelbine on days 1 and 8 of a 21 day cycle. Interval history: She saw Dr. Rachel Wilson recently, and she is planning to transfer care to [place]. She will be here for next infusion on 01/14/2020. No new problems except luis-oral and forehead papular rashes with mild itching. No fever. No chills. - Patient Self-Reported Symptoms SR Constitution: Fatigue/Malaise SR ears, nose, mouth, throat issues: Cough SR respiratory issues: Mucous SR Skin issues: Hair loss or scalp prob, Nail changes SR Gastrointestinal issues: Heartburn SR Musculoskeletal issues: Muscle pain or cramps, Bone pain SR Neuro issues: Tremors or shaking - Additional ROS All systems PM: reviewed and no additional remarkable complaints except as stated Home Medications and Allergies Home Medications Medication Instructions Recorded Confirmed Type Tumeric 800 mg DAILY 04/30/19 12/31/19 History atorvastatin 10 mg PO DAILY 04/30/19 12/31/19 History bupropion HCl [Wellbutrin XL] 300 mg DAILY 04/30/19 12/31/19 History duloxetine [Cymbalta] 60 mg PO DAILY 04/30/19 12/31/19 History gabapentin 100 mg PO DAILY 04/30/19 12/31/19 History ginkgo biloba 30 mg DAILY 04/30/19 12/31/19 History melatonin 5 mg DAILY 04/30/19 12/31/19 History oxycodone 5 mg PO Q4-6H PRN 04/30/19 12/31/19 History prochlorperazine maleate 10 mg PO BID PRN 04/30/19 12/31/19 History [Compazine] pyridoxine (vitamin B6) [Vitamin 100 mg PO DAILY 04/30/19 12/31/19 History B-6] calcium carbonate [Tums] 200 mg DAILY 08/14/19 12/31/19 History cetirizine [Zyrtec] 10 mg DAILY 08/14/19 12/31/19 History cholecalciferol (vitamin D3) 5,000 unit DAILY 08/14/19 12/31/19 History [Vitamin D3] aripiprazole [Abilify] 2 mg DAILY 09/04/19 12/31/19 History esomeprazole magnesium [Nexium] 20 mg PO DAILY 12/03/19 12/31/19 History Allergies Allergy/AdvReac Type Severity Reaction Status Date / Time No Known Drug Allergies Allergy Verified 05/22/19 12:19 Exam Vital signs: Last Vital Signs Temp 98.1 F 12/31/19 10:30 Pulse 82 12/31/19 10:30 Resp 16 12/31/19 10:30 BP 154/61 H 12/31/19 10:30 Pulse Ox 100 12/31/19 10:30 ECOG 1 Narrative: Gen: WDWN, NAD, pleasant and cooperative. HEENT: NCAT, EOMI, PERRLA, anicteric sclera. Neck: Supple, No palpable thyromegaly or lymphadenopathy. Respiratory: CTAB, no wheezes audible. No JVD Cardiovascular: RRR, S1 and S2 normal, no M/G/R. Abdomen: Soft, NTND, BS normal, no palpable organomegaly Extremities: No LE pitting edema. Lymphatic: no palpable lymph nodes in the neck, axillae, or groins. Neurological: AOx3, CN II-XII grossly intact. No focal motor or sensory deficit. Psychiatric:Normal affect; No depression; No anxiety. Results - Labs Laboratory Last Values WBC 8.0 X10^3/uL (4.5-11.0) 12/31/19 09:51 RBC 4.29 X10^6/uL (4.0-5.2) 12/31/19 09:51 Hgb 13.3 g/dL (12.0-16.0) 12/31/19 09:51 Hct 39.2 % (36-46) 12/31/19 09:51 MCV 91.5 fL (80-100) 12/31/19 09:51 MCH 31.1 PG (26-34) 12/31/19 09:51 MCHC 34.0 % (30-36) 12/31/19 09:51 RDW 16.8 % (11.6-14.8) H 12/31/19 09:51 Plt Count 214 X10^3/uL (150-400) 12/31/19 09:51 Neut % (Auto) 75.8 % (50-75) H 12/31/19 09:51 Lymph % (Auto) 15.2 % (25-40) L 12/31/19 09:51 [place] % (Auto) 4.9 % (3-14) 12/31/19 09:51 Eos % (Auto) 3.1 % (2-4) 12/31/19 09:51 Baso % (Auto) 1.0 % (0-2) 12/31/19 09:51 Neut # (Auto) 6100 /uL (8357-7446) 12/31/19 09:51 Lymph # (Auto) 1200 /uL (6979-7533) 12/31/19 09:51 [place] # (Auto) 400 /uL (0-900) 12/31/19 09:51 Eos # (Auto) 200 /uL (0-450) 12/31/19 09:51 Baso # (Auto) 100 /uL (0-100) 12/31/19 09:51 Total Counted 100 05/22/19 10:30 Seg Neutrophils % 52.0 % (38-70) 05/22/19 10:30 Band Neutrophils % 23.0 % (3-7) H 05/22/19 10:30 Lymphocytes % (Manual) 16.0 % (25-45) L 05/22/19 10:30 Monocytes % (Manual) 6.0 % (2-11) 05/22/19 10:30 Eosinophils % (Manual) 2.0 % (2-4) 05/22/19 10:30 Basophils % (Manual) 1.0 % (0-1) 05/22/19 10:30 Neutrophils # (Manual) 7725 /uL (0734-3025) H 05/22/19 10:30 Nucleated RBCs 1 #/Diff (-0) H 05/22/19 10:30 Differential Comment 05/22/19 10:30 RBC Morphology Not Reportable 05/22/19 10:30 Poikilocytosis 1+ H 05/22/19 10:30 Anisocytosis 2+ H 05/22/19 10:30 Sodium 141 mmol/L (137-145) 12/31/19 09:51 Potassium 4.2 mmol/L (3.4-5.1) 12/31/19 09:51 Chloride 103 mmol/L (98-107) 12/31/19 09:51 Carbon Dioxide 27 mmol/L (22-32) 12/31/19 09:51 BUN 17 mg/dL (7-17) 12/31/19 09:51 Creatinine 0.70 mg/dL (0.52-1.04) 12/31/19 09:51 Estimated GFR > 60.0 mL/min (>60) 12/31/19 09:51 BUN/Creatinine Ratio 24.3 (6-22) H 12/31/19 09:51 Glucose 98 mg/dL (80-110) 12/31/19 09:51 Calcium 9.5 mg/dL (8.4-10.2) 12/31/19 09:51 Total Bilirubin 0.4 mg/dL (0.2-1.3) 12/31/19 09:51 AST 29 IU/L (14-36) 12/31/19 09:51 ALT 26 IU/L (<35) 12/31/19 09:51 Alkaline Phosphatase 121 U/L (38-126) 12/31/19 09:51 Total Protein 7.5 g/dL (6.3-8.2) 12/31/19 09:51 Albumin 4.6 g/dL (3.5-5.0) 12/31/19 09:51 Globulin 2.9 g/dL (1.7-4.1) 12/31/19 09:51 Albumin/Globulin Ratio 1.6 (1.0-2.8) 12/31/19 09:51 Carcinoembryonic Ag 26.7 ng/mL (0.1-3.0) H 12/03/19 09:45 Breast [facility] [employer] Ag 46 U/mL (< 32) H 06/12/19 10:05 Assessment and Plan (1) Breast cancer Overveiw: 1. Left-sided ER/VT+, HER2- pT2 N1 breast cancer status psot lumpectomy and axillary node biopsy in 09/2006. Primary tumor 2.4 cm. One of 9 nodes positive. She underwent adjuvant Adriamycin and Cytoxan followed by Taxol for 9 weeks stopped due to neuropathy. She completed adjuvant radiation finishing in March 2007, and Tamoxifen. 2. Chest wall and bone recurrence detected in January 2011. She was treated with radiation. Xeloda and Xgeva. she had additional hormone therapy with letrozole, then anastrozole and then fulvestrant beginning in 2016 and then tamoxifen. Additional treatment with Letrozole and palbociclib. Xeloda again in November 2017 for about a year. Exemestane and Afinitor from November 2018 through February 2019 3. Progression in the breast and chest wall confirmed by biopsy. She has started on navelbine on days 1 and 8 every 21 days Assessment: Patient has already seen Dr. Jesenia Wilson at [facility]. Patient decided to transfer her care after next treatment. I reviewed the lab tests today. They are appropriate. Will proceed with scheduled cycle 13 day 1 Navelbine. Plan: 1. Ok to proceed to Navelbine today 2. RTC in 2 weeks for C13D15 Navelbine
--- NOTE | 2019-12-31 11:06 | ONC.SCHED ---
Information from Patient Accounts re: insurance - According to Medicare this patient has [employer] as her primary insurance coverage and Medicare as secondary.? She will need to update Medicare with her [employer] termination date or they will deny all of her claims. Per Brandy Reynoso.
--- NOTE | 2019-12-31 11:34 | ONC.SCHED ---
Spoke to Pt so that she can call her Medicare and be sure that this insurance is her primary and [employer] is secondary. Pt will let us or Patient Accounts know once she has straightened this out with Medicare. I let patient know to be sure and contact us as soon as she contacts Medicare so that when [employer] is secondary we can have it added.
[2019-12-31] MEDS: SODIUM CHLORIDE 0.9% IV (11:47)
[2019-12-31] MEDS: VINORELBINE IV (11:47)
[2019-12-31] MEDS: SODIUM CHLORIDE 0.9% 100 ML 21 ML IV (11:47)
[2020-01-14 13:38] LABS: Add Manual Diff / Slide Review NO; Basophils Absolute Auto 100 /uL (0-100); Basophils Percent Auto 1.3 % (0-2); Eosinophils Absolute Auto 200 /uL (0-450); Eosinophils Percent Auto 4.3 % (2-4); Hematocrit 37.8 % (36-46); Hemoglobin 12.9 g/dL (12.0-16.0); Lymphocytes Absolute Auto 1100 /uL (1100-4500); Lymphocytes Percent Auto 21.7 % (25-40); Mean Corpuscular Hemoglobin 30.7 PG (26-34); Mean Corpuscular Volume 90.1 fL (80-100); Monocytes Absolute Auto 500 /uL (0-900); Monocytes Percent Auto 10.7 % (3-14); Neutrophils Absolute Auto 3100 /uL (1500-7000); Platelet Count 305 X10^3/uL (150-400); Red Blood Cell Count 4.19 X10^6/uL (4.0-5.2); White Blood Cell Count 4.9 X10^3/uL (4.5-11.0)
[2020-01-14 13:45] VITALS: BP 126/64; PULSE 90; RESP 18; TEMP 37.1; O2SAT 100
[2020-01-14 13:58] LABS: Alanine Aminotransferase 23 IU/L (<35); Albumin 4.5 g/dL (3.5-5.0); Albumin Globulin Ratio 1.6 (1.0-2.8); Alkaline Phosphatase 95 U/L (38-126); Aspartate Aminotransferase 31 IU/L (14-36); BUN Creatinine Ratio 28.6 (6-22); Bilirubin Total 0.5 mg/dL (0.2-1.3); Blood Urea Nitrogen 20 mg/dL (7-17); Calcium 9.3 mg/dL (8.4-10.2); Carbon Dioxide 28 mmol/L (22-32); Chloride 104 mmol/L (98-107); Estimated Glomerular Filt Rate > 60.0 mL/min (>60); Globulin 2.9 g/dL (1.7-4.1); Glucose 96 mg/dL (80-110); HEMOLYSIS < 15 (0-50); Potassium 4.1 mmol/L (3.4-5.1); Sodium 140 mmol/L (137-145); Total Protein 7.4 g/dL (6.3-8.2)
[2020-01-14] MEDS: SODIUM CHLORIDE 0.9% 100 ML 21 ML IV (14:45)
[2020-01-14] MEDS: VINORELBINE IV (14:45)
[2020-01-14] MEDS: SODIUM CHLORIDE 0.9% IV (14:45)
[2020-01-14] MEDS: PEGFILGRASTIM 6 MG/0.6 ML KIT SUBCUT (15:03)
--- NOTE | 2020-03-19 09:59 | ONC.MSW ---
[employer] Appeal Submitted the Letter of Medical Necessity and clinicals to [facility]. Will update pt once a determination has been made.
== END ==
PROVIDERS: Internal Medicine Hematology & Oncology; Family Provider Internal Medicine Medical Oncology; PCP Internal Medicine Medical Oncology
DX: Z51.11 Encounter for antineoplastic chemotherapy (principal); C50.912 Malignant neoplasm of unspecified site of left female breast; C79.51 Secondary malignant neoplasm of bone; Z17.0 Estrogen receptor positive status [ER+]
CPT/HCPCS: 36591; 80053; 82378; 85025; 86300; 96372; 96375; 96409; 96411; 96413; 99204; 99214; J1100; J2405; J2505; J9390